=== PATIENT | male | born 1960 | race Caucasian/White ===

== ENCOUNTER → 2016-10-26 | Outpatient (CLI) | payer OTHER ==
[~2016-10-26] MED LIST: /CELE20CA PO; /ONDA4TA OR; ACET500C OR; ALLE25CA OR; ALLEGRA PO; ATIV1TAB2 OR; BENT20TA OR; CLAR10CA3 PO; FLON1SPR; FLUTISP; MEN MULTIVITAMIN PO; MULTTAB4 PO; MYLI40DR OR; NEUR300C PO; OMEP20CA3 PO; OMEP20TA7 OR; OMEP40CA2 PO; SIME180C PO; SIME80TA PO; TYL PO; ULTR50TA PO
--- NOTE | 2016-10-26 15:50 | REP ---
Clinical: Heel pain. Technique: Axial and lateral views of the left calcaneus. Findings: Lateral view demonstrates small calcaneal heal spur. Examination is otherwise normal. Impression: Small calcaneal heal spur.
== END ==
LOC: M CLY 15:01
PROVIDERS: ATTEND Family Medicine
DX: M77.32 Calcaneal spur, left foot (principal)

== ENCOUNTER 2016-12-25 11:39 | Inpatient (IN) | payer OTHER ==
[~2016-12-25] VITALS: Ht 165.1 cm; Wt 82.0 kg
[2016-12-25] MEDS: ENOXAPARIN 40 MG/0.4 ML SYRINGE (J1650) SC SCH ×2 (09:00→18:12)
[2016-12-25] MEDS ORDERED: NS 1,000 ML IV ONE (12:00)
[2016-12-25] MEDS ORDERED: KETOROLAC 30 MG/ML VIAL (J1885) IV ONE (12:00)
[2016-12-25] MEDS ORDERED: ONDANSETRON 4MG/2ML VIAL (J2405) IV ONE (12:00)
[2016-12-25 12:19] LABS: BASO % 0.4 % (0.0-1.0); EOS # 0.1 K/mm3 (0.0-0.50); LARGE UNSTAINED CELL # 0.1 K/mm3 (0.0-0.4); LARGE UNSTAINED CELL % 0.9 % (0.0-4.0); LYMPH # 1.4 K/mm3 (1.5-4.5); LYMPH % 13.7 % (24.0-44.0); MEAN CORPUSCULAR HEMOGLOBIN 30.6 pg (27.0-33.0); MONO # 0.3 K/mm3 (0.0-0.8); MONO % 3.5 % (0.0-5.0); NEUTROPHILS # 7.6 K/mm3 (1.8-7.7); NEUTROPHILS % 80.5 % (36.0-66.0); PLATELET COUNT, AUTOMATED 294 k/mm3 (150-450); RED CELL DISTRIBUTION WIDTH 13.1 % (11.5-14.5); WHITE BLOOD COUNT 9.5 K/mm3 (4.0-10.0)
[2016-12-25 12:33] LABS: ALBUMIN 4.3 GM/DL (3.2-5.2); ALKALINE PHOSPHATASE 65 U/L (45-117); ALT/SGPT 27 U/L (12-78); ANION GAP 9 MEQ/L (8-16); AST/SGOT 8 U/L (15-37); BILIRUBIN,DIRECT 0.1 MG/DL (0.0-0.2); BILIRUBIN,TOTAL 0.8 MG/DL (0.2-1.0); BLOOD UREA NITROGEN 18 MG/DL (7-18); CALCIUM LEVEL 9.1 MG/DL (8.5-10.1); CARBON DIOXIDE LEVEL 21 MEQ/L (21-32); CHLORIDE LEVEL 107 MEQ/L (98-107); CREATININE FOR GFR 1.17 MG/DL (0.70-1.30); GLOMERULAR FILTRATION RATE > 60.0 (>56); GLUCOSE, FASTING 156 MG/DL (70-105); SODIUM LEVEL 137 MEQ/L (136-145); TOTAL PROTEIN 8.6 GM/DL (6.4-8.2)
--- NOTE | 2016-12-25 12:35 | REP ---
Abdominal pain. COMPARISON: 02/13/2016 The accompanying frontal view of the chest is clear. There is no free subdiaphragmatic air. There are multiple dilated gas and fluid-filled small bowel loops in the abdomen. This is seen particularly on the upright view. The organ silhouettes insofar as delineated appear to be within normal limits. The osseous structures are within normal limits. IMPRESSION: SBO is suspected. Signed by Jabari Franks DO 12/25/2016 01:29 P
[2016-12-25] MEDS ORDERED: ISOVUE-370 76% 100ML VIAL (Q9967) As Ordered ONE (12:55)
[2016-12-25] MEDS ORDERED: VITMTA PO (15:03)
--- NOTE | 2016-12-25 15:25 | REP ---
REASON: Small bowel obstruction. COMPARISON: Multiple, the latest 02/12/2016 which showed a small bowel obstruction. Contrast utilized: 100 mL Isovue 370. The lung bases are clear and unchanged. The liver, gallbladder, spleen, pancreas, adrenal glands, and kidneys are within normal limits and essentially unchanged from the prior exam with the technical differences between the exams are taken into consideration. The abdominal aorta and para-aortic regions are within normal limits. There is no evidence of free fluid or free air in the abdomen. There are multiple gas and fluid-filled dilated small bowel loops in the abdomen. There is a paraumbilical hernia on the right through which a loop of small bowel protrudes and is extremely narrowed as it protrudes through this narrow aperture. This findings was present on the prior exam. CT PELVIS: The pelvis bowel loops are within normal limits. There is no free pelvic fluid or air. There is no pelvic mass or adenopathy. Bone window technique throughout the exam shows the osseous structures to be stable and intact and within normal limits for the patient's age. IMPRESSION: Findings consistent with an early or partial small bowel obstruction. Ventral hernia as described above. Other findings as described above. Signed by Jabari Franks DO 12/25/2016 04:17 P
[2016-12-25 16:20] VITALS: BP 116/72
[2016-12-25] MEDS: ONDANSETRON 4MG/2ML VIAL (J2405) IV PRN (18:03)
[2016-12-25] MEDS: PANTOPRAZOLE 40MG INJ (PROTONIX) (C9113) IV SCH (18:12)
[2016-12-25] MEDS: LR 1,000 ML IV SCH (18:14)
[2016-12-25] MEDS: METOCLOPRAMIDE INJ 10MG/2ML VIAL (J2765) IV PRN (20:10)
[2016-12-25] MEDS: MORPHINE 2 MG/ML 1ML SYRINGE IV PRN (20:25)
[2016-12-25 22:00] VITALS: BP 120/74
[2016-12-26] MEDS: ONDANSETRON 4MG/2ML VIAL (J2405) IV PRN ×4 (00:45→21:05)
[2016-12-26] MEDS: LR 1,000 ML IV SCH ×3 (00:45→17:40)
[2016-12-26] MEDS: KETOROLAC 30 MG/ML VIAL (J1885) IV PRN ×3 (00:45→19:46)
[2016-12-26 02:00] VITALS: BP 116/67
[2016-12-26] MEDS: MORPHINE 2 MG/ML 1ML SYRINGE IV PRN ×2 (03:31→21:05)
[2016-12-26] MEDS: METOCLOPRAMIDE INJ 10MG/2ML VIAL (J2765) IV PRN ×3 (03:37→19:45)
[2016-12-26 06:00] VITALS: BP 109/67
[2016-12-26 07:08] LABS: DIFF SLIDE NUMBER 95; MEAN CORPUSCULAR HEMOGLOBIN 29.9 pg (27.0-33.0); MEAN CORPUSCULAR HGB CONC 32.8 g/dl (32.0-36.5); MEAN CORPUSCULAR VOLUME 91.3 fl (80.0-96.0); PLATELET COUNT, AUTOMATED 226 k/mm3 (150-450); RED CELL DISTRIBUTION WIDTH 13.2 % (11.5-14.5)
[2016-12-26 07:09] LABS: WHITE BLOOD COUNT 2.7 K/mm3 (4.0-10.0)
[2016-12-26 07:16] LABS: ANION GAP 7 MEQ/L (8-16); BLOOD UREA NITROGEN 24 MG/DL (7-18); CALCIUM LEVEL 8.2 MG/DL (8.5-10.1); CARBON DIOXIDE LEVEL 25 MEQ/L (21-32); CHLORIDE LEVEL 110 MEQ/L (98-107); CREATININE FOR GFR 1.23 MG/DL (0.70-1.30); GLOMERULAR FILTRATION RATE > 60.0 (>56); GLUCOSE, FASTING 117 MG/DL (70-105); SODIUM LEVEL 142 MEQ/L (136-145)
[2016-12-26 08:28] LABS: BANDS 8 % (< 11); EOSINOPHILS 2 % (0-5)
[2016-12-26] MEDS: PANTOPRAZOLE 40MG INJ (PROTONIX) (C9113) IV SCH (09:15)
[2016-12-26] MEDS: ENOXAPARIN 40 MG/0.4 ML SYRINGE (J1650) SC SCH (09:16)
--- NOTE | 2016-12-26 09:53 | REP ---
KUB: Single view. History: Small bowel obstruction. Comparison is made with the radiograph from December 25, [address] study from December 25, 2016. Findings: Supine view of the abdomen shows persistent dilation moderate in degree of multiple small bowel loops in the central abdomen. There is mural thickening and mucosal fold thickening in the affected loops. The degree of distension may be slightly improved. There is increased gas in the transverse colon. Urinary bladder is opacified from CT contrast given. Impression: Persistent partial small bowel obstruction pattern with mural and mucosal fold thickening. Slightly improved. Signed by Jose Garay MD 12/26/2016 12:08 P
[2016-12-26 14:00] VITALS: BP 114/74
[2016-12-26 18:00] VITALS: BP 134/79
--- NOTE | 2016-12-26 20:38 | HPE ---
DATE OF ADMISSION: 12/25/2016 ADMISSION DIAGNOSES: 1. Small intestinal obstruction. 2. Ventral incisional hernia. HISTORY OF PRESENT ILLNESS: The patient is a pleasant 56-year-old man who presented to the emergency department with a complaint of what he believes is a recurrent small intestinal obstruction. The patient reports that he had an appendectomy in [place] back in about 1999, give or take a few years. This was done through a right lower quadrant paramedian incision. He sounds as if he may have been perforated at the time of the surgery. He did well for some time. In about 2003 he had an intestinal obstruction that was treated with nasogastric decompression and subsequently resolved. He had relocated to [place]. In 2011 he underwent an exploratory laparotomy by Dr. Interiano for a small bowel obstruction. The patient reports he had a prolonged ileus postoperatively and was hospitalized for over 2 weeks. He returned in 2012 with a ventral incisional hernia which was repaired primarily. This subsequently recurred but the patient reports it has not caused problems enough to have a repair. He was admitted in early 2014 with a small bowel obstruction and then again in about February 2016, and on these two occasions the patient reports that with nasogastric decompression his obstruction resolved. He reports that since last year he has had perhaps three episodes where he developed some abdominal distension with discomfort and he managed to wait it out at home with rest and ambulation with resolution of his symptoms. He reports that early on 12/24/2016, he noted some abdominal distension. He had some crampy abdominal discomfort. This increased during the course of the day on 12/24/2016. Overnight he noted a loose bowel movement. He awoke this morning and had several additional loose bowel movements but still had significant abdominal distension with crampy abdominal pains. He presented to the emergency department at 1139 for evaluation. He had an abdominal x-ray obtained that was consistent with a small bowel obstruction and then had a CT scan of the abdomen and pelvis which was also consistent with a small bowel obstruction. He had his ventral incisional hernia noted. This also shows a small hernia just to the right of his midline hernia which appears to contain portions of a loop of bowel. It is unclear to me if this represents the source of his obstruction. He does certainly have some distal decompressed small bowel. There is no sign of infection or acute inflammatory changes within the abdomen. He is now admitted for management of his recurrent small intestinal obstruction. ALLERGIES: The patient reports that CODEINE and DEMEROL both lead to nausea and vomiting with hives also associated with the DEMEROL. MEDICATIONS AT HOME: His only medication that he takes regularly is omeprazole 40 mg by mouth daily. He also takes [id number] Claritin 10 mg by mouth as needed daily. MEDICAL HISTORY: Negative other than his prior abdominal surgery and episodes of obstruction. He has had renal stones as well. SURGICAL HISTORY: Includes his appendectomy back in about 1999. He had his exploratory laparotomy for bowel obstruction at [facility] ([facility]) in 2011 and had a primary repair of his ventral incisional hernia in 2012. He has had lithotripsy for renal stones, perhaps three times in the past. He had also undergone surgery on his left thumb long ago for an injury. FAMILY HISTORY: Noncontributory. SOCIAL HISTORY: The patient is employed at [employer] and also does yard work in the summer. He denies any tobacco use and drinks alcohol occasionally. REVIEW OF SYSTEMS: Reveals no history of significant cardiac, respiratory, genitourinary or musculoskeletal skeletal problems. He has no history of deep venous thrombosis (DVT) or pulmonary embolus. He denies any history of chronic severe headaches, seizure or stroke. He has had a colonoscopy within the last couple years, which revealed diverticulosis and an adenomatous polyp was resected in the mid ascending colon. PHYSICAL EXAMINATION: The patient's most recent vital signs show a temperature of 98.4, with pulse of 96, blood pressure 110/75, respiratory rate of 18. The patient is alert, oriented and cooperative. He is lying quietly on the hospital stretcher, not in obvious discomfort. Sclerae are anicteric. Mucous membranes are moist. The neck is supple without mass and he has no cervical bruit. Heart exam shows regular rate and rhythm. The lungs are clear to auscultation bilaterally. The abdomen is mildly protuberant, particularly in the upper quadrants. He has a definite small hernia bulge perhaps 5-6 cm across in the area of the umbilicus. He has an old somewhat widened right lower quadrant paramedian scar and a longer midline scar. Auscultation reveals bowel sounds in all quadrants with some sounds suggestive of dilated bowel in the upper quadrants in particular. There is no definite tympany to percussion. There is no tenderness to percussion. The abdomen is generally soft but full. The hernia above the umbilicus or at the umbilicus reveals a definite fascial defect about 4 cm in diameter. This is soft and nontender. Extremities show no peripheral edema. He has palpable radial and dorsalis pedis pulses bilaterally. LABORATORY STUDIES: Include a white count of 9.5, with a hemoglobin of 16, hematocrit of 47, and platelet count of 294,000. Neutrophils are 80%, with 14% lymphocytes and 4% monocytes. Chemistry profile shows sodium of 137, potassium 4.0, chloride 107, CO2 of 21, BUN of 18, creatinine 1.17 and a glucose of 156. He has a lipase that is normal and his liver function tests are normal as well. A urinalysis shows no evidence for urinary tract infection. The abdominal x-ray was read as showing multiple dilated air and fluid-filled loops of small bowel. The CT scan confirms some dilated loops of small bowel. There is definite decompressed distal small bowel and colon. There is no significant free fluid and no area of significant inflammation. He does have the hernia of the anterior abdominal wall which appears to contain a portion of a crossing loop of small bowel and there is also a second smaller defect just inferior and to the right of this that also appears to contain a small portion of bowel. I am unable to definitely track the loops through this area to know if this might be the source of his obstruction. IMPRESSION: 1. Small bowel obstruction. 2. Ventral incisional hernia. PLAN: The patient is being admitted for management of his intestinal obstruction. Because he has some dilated loops of bowel containing fluid I think a nasogastric tube would be reasonable. The patient is agreeable with this and thinks that this has been a big part of his recovery with nonoperative management previously. He will receive IV maintenance fluid. He will be kept on a proton pump inhibitor intravenously. Thromboembolism deterrents (TEDs) and sequentials will be utilized and he will also be started on Lovenox for deep venous thrombosis (DVT) prophylaxis. He will be provided with analgesics as necessary. Hopefully his obstruction will resolve. I did not feel a definite hernia bulge as seen on the CT scan to the right and inferior to the main hernia defect. It may be that this is easily reducible or that it is too small to palpate appreciably. We will monitor this during the course of his hospital stay. SONA
[2016-12-26 22:00] VITALS: BP 120/69
[2016-12-27] MEDS: LR 1,000 ML IV SCH (02:18)
[2016-12-27] MEDS: METOCLOPRAMIDE INJ 10MG/2ML VIAL (J2765) IV PRN (02:21)
[2016-12-27] MEDS: ONDANSETRON 4MG/2ML VIAL (J2405) IV PRN ×2 (05:23→21:21)
[2016-12-27 06:00] VITALS: BP 116/70
[2016-12-27 06:54] LABS: BASO % 0.5 % (0.0-1.0); EOS # 0.1 K/mm3 (0.0-0.50); EOS % 3.3 % (0.0-3.0); LARGE UNSTAINED CELL # 0.1 K/mm3 (0.0-0.4); LARGE UNSTAINED CELL % 2.5 % (0.0-4.0); LYMPH # 1.4 K/mm3 (1.5-4.5); LYMPH % 38.1 % (24.0-44.0); MEAN CORPUSCULAR HEMOGLOBIN 29.8 pg (27.0-33.0); MEAN CORPUSCULAR HGB CONC 32.8 g/dl (32.0-36.5); MEAN CORPUSCULAR VOLUME 90.6 fl (80.0-96.0); MONO # 0.3 K/mm3 (0.0-0.8); MONO % 8.4 % (0.0-5.0); NEUTROPHILS # 1.8 K/mm3 (1.8-7.7); NEUTROPHILS % 47.3 % (36.0-66.0); PLATELET COUNT, AUTOMATED 206 k/mm3 (150-450); RED CELL DISTRIBUTION WIDTH 12.9 % (11.5-14.5); WHITE BLOOD COUNT 3.7 K/mm3 (4.0-10.0)
[2016-12-27 07:12] LABS: ANION GAP 5 MEQ/L (8-16); BLOOD UREA NITROGEN 24 MG/DL (7-18); CALCIUM LEVEL 8.5 MG/DL (8.5-10.1); CARBON DIOXIDE LEVEL 29 MEQ/L (21-32); CHLORIDE LEVEL 110 MEQ/L (98-107); CREATININE FOR GFR 1.16 MG/DL (0.70-1.30); GLOMERULAR FILTRATION RATE > 60.0 (>56); GLUCOSE, FASTING 87 MG/DL (70-105); POTASSIUM SERUM 3.7 MEQ/L (3.5-5.1); SODIUM LEVEL 144 MEQ/L (136-145)
[2016-12-27] MEDS: ENOXAPARIN 40 MG/0.4 ML SYRINGE (J1650) SC SCH (08:49)
[2016-12-27] MEDS: PANTOPRAZOLE 40MG INJ (PROTONIX) (C9113) IV SCH (08:49)
[2016-12-27 10:00] VITALS: BP 143/85
[2016-12-27] MEDS: POTASSIUM CHLORIDE INJ 40 MEQ in LR 1,000 ML IV SCH ×2 (11:00→21:21)
--- NOTE | 2016-12-27 13:30 | REP ---
KUB: Two views provided. HISTORY: Small bowel obstruction. Comparison study: December 26, 2016. FINDINGS: A nasogastric tube is seen in the body of the stomach. Moderately dilated central abdominal small bowel loops are again seen. There is still some mucosal folds and mural thickening however this is somewhat decreased. There is a little more gas in the colon and distal small bowel loops. IMPRESSION: Partial small bowel obstruction. Bowel gas pattern is somewhat improved. Signed by Jose Garay MD 12/27/2016 03:39 P
[2016-12-27 14:00] VITALS: BP 140/83
[2016-12-27 18:00] VITALS: BP 143/76
[2016-12-27] MEDS: KETOROLAC 30 MG/ML VIAL (J1885) IV PRN (21:23)
[2016-12-27 22:00] VITALS: BP 134/74
[2016-12-28 02:00] VITALS: BP 121/61
[2016-12-28 06:00] VITALS: BP 138/80
[2016-12-28] MEDS: ONDANSETRON 4MG/2ML VIAL (J2405) IV PRN ×3 (06:00→22:30)
[2016-12-28] MEDS: POTASSIUM CHLORIDE INJ 40 MEQ in LR 1,000 ML IV SCH ×2 (07:06→20:31)
[2016-12-28] MEDS: PANTOPRAZOLE 40MG INJ (PROTONIX) (C9113) IV SCH (07:37)
[2016-12-28] MEDS: ENOXAPARIN 40 MG/0.4 ML SYRINGE (J1650) SC SCH (07:38)
[2016-12-28 10:00] VITALS: BP 131/82
[2016-12-28 14:00] VITALS: BP 132/74
[2016-12-28] MEDS: KETOROLAC 30 MG/ML VIAL (J1885) IV PRN ×2 (15:38→22:31)
[2016-12-28 18:00] VITALS: BP 132/78
[2016-12-28 22:00] VITALS: BP 131/74
[2016-12-29 06:00] VITALS: BP 120/72
[2016-12-29 06:37] LABS: ANION GAP 9 MEQ/L (8-16); BLOOD UREA NITROGEN 16 MG/DL (7-18); CALCIUM LEVEL 8.2 MG/DL (8.5-10.1); CARBON DIOXIDE LEVEL 23 MEQ/L (21-32); CHLORIDE LEVEL 109 MEQ/L (98-107); CREATININE FOR GFR 0.97 MG/DL (0.70-1.30); GLOMERULAR FILTRATION RATE > 60.0 (>56); GLUCOSE, FASTING 77 MG/DL (70-105); POTASSIUM SERUM 4.2 MEQ/L (3.5-5.1); SODIUM LEVEL 141 MEQ/L (136-145)
[2016-12-29] MEDS: PANTOPRAZOLE 40MG INJ (PROTONIX) (C9113) IV SCH (08:13)
[2016-12-29] MEDS: ENOXAPARIN 40 MG/0.4 ML SYRINGE (J1650) SC SCH (08:13)
[2016-12-29] MEDS: ONDANSETRON 4MG/2ML VIAL (J2405) IV PRN (08:13)
[2016-12-29] MEDS: POTASSIUM CHLORIDE INJ 40 MEQ in LR 1,000 ML IV SCH (10:30)
[2016-12-29 14:00] VITALS: BP 140/82
[2016-12-29 22:00] VITALS: BP 116/75
[2016-12-30 02:00] VITALS: BP 110/80
[2016-12-30 06:00] VITALS: BP 142/92
[2016-12-30] MEDS: PANTOPRAZOLE 40MG INJ (PROTONIX) (C9113) IV SCH (09:00)
[2016-12-30 10:00] VITALS: BP 137/84
[2016-12-30 14:00] VITALS: BP 128/83
--- NOTE | 2017-02-01 09:52 | DSES ---
DATE OF ADMISSION: 12/25/2016 DATE OF DISCHARGE: 12/30/2016 ADMITTING DIAGNOSES: 1. Small intestinal obstruction. 2. Ventral incisional hernia. HISTORY OF THE PRESENT ILLNESS: The patient is a pleasant, 56-year-old man who presented to the emergency department with a complaint of a possible recurrent small intestinal obstruction. Patient reports that he had an appendectomy in [place] back in about 1999. This was done through a right lower quadrant paramedian incision. It sounds as if he was perforated at the time of surgery. In approximately 2003, he had an intestinal obstruction that was treated with nasogastric decompression and resolved. He relocated to [place]. In 2011, he underwent an exploratory laparotomy by Dr. Interiano for a small bowel obstruction. Patient reports he had a prolonged ileus postoperatively and was hospitalized for over 2 weeks. He returned in 2012 with a ventral incisional hernia, which was repaired primarily. This subsequently recurred, but the patient reports it has not caused problems enough to have a repair. He was admitted in early 2014 with a small bowel obstruction and then again in approximately February of 2016 and on each of these occasions the obstruction resolved with nasogastric decompression. He reports he has had a couple of episodes of some abdominal distension with discomfort that he managed to wait out at home with rest and ambulation and a liquid diet. On 12/24/2016, he noted some increased abdominal distension. He developed some crampy abdominal discomfort. This increased during the day on 12/24/2016 and overnight he noted a loose bowel movement. He awoke on 12/25/2016 and had several additional loose bowel movements, but still had significant abdominal distension with crampy abdominal pains. He presented to the emergency department at 11:39 for evaluation. An x-ray showed what was felt to be consistent with a small bowel obstruction and a CT scan of the abdomen and pelvis was also done which was felt to be consistent with a small bowel obstruction. His ventral incisional hernia was noted. He was also noted to have a small hernia just to the right of his midline hernia, which appeared to contain portions of a loop of bowel. It was not clear whether this might represent the source of his obstruction. He had some distal decompressed small bowel noted. I was consulted, and the patient was admitted to manage his recurrent small intestinal obstruction. A nasogastric tube was placed. He received intravenous (IV) fluids. The patient was admitted to a medical-surgical floor. He spontaneously walked multiple laps around the nursing floor in an attempt to stimulate bowel function. By 12/26/2016, he remained somewhat distended but was perhaps less uncomfortable. His nasogastric (NG) tube had put out 700 mL. A KUB showed decreased amounts of small bowel air with increased colonic air. His NG tube and IV were continued. He felt further improved on 12/27/2016, but still had 500 mL out in his NG tube. On 12/26/2016, he reported that he was improving with increased flatus. He requested a trial of clamping his NG tube and this was granted. His urine output was noted to be much improved. On 12/29/2016, he reported increased flatus and no pain. His NG tube has remained clamped since the previous day. His NG was discontinued. He was started on clear liquids. He did well with the clear liquids overnight and was discharged on 12/30/2016. FINAL DIAGNOSES: 1. Recurrent small bowel obstruction secondary to adhesions. 2. Ventral incisional hernia. DISPOSITION: The patient was discharged home on 12/30/2016. He was not provided any new medications. He was to take a diet as tolerated. He was to continue his loratadine, multivitamin and omeprazole as before admission. He was to followup in my office on an as-needed basis.
== END 2016-12-30 17:27 | disposition home or self-care (01) | DRG 247 ==
LOC: M ED 12:28 → M ED INP 14:43 → M MSPAV 16:06
PROVIDERS: ADMIT Surgery; ATTEND Surgery
DX: K56.5 Intestinal adhesions [bands] with obstruction (postinfection) (principal); K43.2 Incisional hernia without obstruction or gangrene; Z88.5 Allergy status to narcotic agent; Z79.899 Other long term (current) drug therapy

== ENCOUNTER → 2017-01-11 | Outpatient (REF) | payer MEDICAID, OTHER, SELFPAY ==
[~2017-01-11] MED LIST changes: +VITMTA PO
[2017-01-11 12:08] LABS: ALBUMIN 3.8 GM/DL (3.2-5.2); ALBUMIN/GLOBULIN RATIO 1.12 (1.00-1.93); ALKALINE PHOSPHATASE 73 U/L (45-117); ALT/SGPT 25 U/L (12-78); ANION GAP 5 MEQ/L (8-16); AST/SGOT 10 U/L (15-37); BILIRUBIN,TOTAL 0.6 MG/DL (0.2-1.0); BLOOD UREA NITROGEN 15 MG/DL (7-18); CALCIUM LEVEL 8.4 MG/DL (8.5-10.1); CARBON DIOXIDE LEVEL 29 MEQ/L (21-32); CHLORIDE LEVEL 106 MEQ/L (98-107); CHOLESTEROL LEVEL 209 MG/DL (<200); GLOMERULAR FILTRATION RATE > 60.0 (>56); GLUCOSE, FASTING 122 MG/DL (70-105); POTASSIUM SERUM 4.4 MEQ/L (3.5-5.1); SODIUM LEVEL 140 MEQ/L (136-145); TOTAL PROTEIN 7.2 GM/DL (6.4-8.2); TRIGLYCERIDES LEVEL 167 MG/DL (<150)
== END ==
LOC: M SFHCCLAY 07:03
PROVIDERS: ATTEND Family Medicine
DX: Z12.5 Encounter for screening for malignant neoplasm of prostate (principal); E78.2 Mixed hyperlipidemia; R73.9 Hyperglycemia, unspecified
CPT/HCPCS: 80053; 80061; 83036; G0103

== ENCOUNTER → 2017-08-09 | Outpatient (REF) | payer MEDICAID ==
[2017-08-09 12:15] LABS: ALBUMIN 3.8 GM/DL (3.2-5.2); ALBUMIN/GLOBULIN RATIO 0.97 (1.00-1.93); ALKALINE PHOSPHATASE 55 U/L (45-117); ALT/SGPT 27 U/L (12-78); ANION GAP 9 MEQ/L (8-16); AST/SGOT 12 U/L (7-37); BILIRUBIN,TOTAL 0.5 MG/DL (0.2-1.0); BLOOD UREA NITROGEN 15 MG/DL (7-18); CALCIUM LEVEL 8.7 MG/DL (8.5-10.1); CARBON DIOXIDE LEVEL 27 MEQ/L (21-32); CHLORIDE LEVEL 106 MEQ/L (98-107); CHOLESTEROL LEVEL 267 MG/DL (<200); GLOMERULAR FILTRATION RATE > 60.0 (>56); GLUCOSE, FASTING 122 MG/DL (70-105); POTASSIUM SERUM 4.4 MEQ/L (3.5-5.1); SODIUM LEVEL 142 MEQ/L (136-145); TOTAL PROTEIN 7.7 GM/DL (6.4-8.2); TRIGLYCERIDES LEVEL 173 MG/DL (<150)
== END ==
LOC: M SFHCCLAY 08:12
PROVIDERS: ATTEND Family Medicine
DX: E78.2 Mixed hyperlipidemia (principal); R73.9 Hyperglycemia, unspecified

== ENCOUNTER → 2017-10-26 | Outpatient (CLI) | payer OTHER, MEDICAID | LOC: M CLY 09:21 | DX: J40 Bronchitis, not specified as acute or chronic (principal) | CPT/HCPCS: 71046 ==

== ENCOUNTER 2018-04-25 09:47 | Emergency (ER) | payer SELFPAY, OTHER ==
[2018-04-25] MEDS ORDERED: CLOPIDOGREL 300 MG TAB (PLAVIX) (09:48)
[2018-04-25] MEDS ORDERED: EPINEPHrine 1MG/10ML SYRINGE 1.5IN (09:48)
[2018-04-25] MEDS ORDERED: HEPARIN 25,000 UNITS/250 ML D5W BAG (100 UNITS/ML) (09:48)
[2018-04-25] MEDS ORDERED: HEPARIN SOD (PORCINE) 5000 UNITS/ML VIAL (09:48)
[2018-04-25 10:10] LABS: ABG BASE EXCESS -14.8 (-2.0-2.0); ABG HCO3 11.8 MEQ/L (22.0-26.0); ABG PARTIAL PRESSURE CO2 30.3 mmHg (35.0-45.0); ABG PARTIAL PRESSURE O2 123.2 mmHg (75.0-100.0); ABG STANDARD HCO3 13.4 MEQ/L (22.0-26.0); ABG TOTAL CO2 12.7 MEQ/L (22.0-29.0)
[2018-04-25 10:13] LABS: ABG pH (ARTERIAL) 7.207 UNITS (7.350-7.450)
[2018-04-25 10:19] LABS: HEMATOCRIT 44.7 % (42.0-52.0); HEMOGLOBIN 14.9 g/dl (13.5-17.5); MEAN CORPUSCULAR HEMOGLOBIN 31.5 pg (27.0-33.0); MEAN CORPUSCULAR HGB CONC 33.3 g/dl (32.0-36.5); MEAN CORPUSCULAR VOLUME 94.5 fl (80.0-96.0); PLATELET COUNT, AUTOMATED 247 10^3/uL (150-450); RED BLOOD COUNT 4.73 10^6/uL (4.30-6.10); RED CELL DISTRIBUTION WIDTH 12.5 % (11.5-14.5)
[2018-04-25] MEDS ORDERED: NITROGLYCERIN 0.4 MG SUBL TABLET As Ordered (10:19)
[2018-04-25 10:21] LABS: WHITE BLOOD COUNT 10.9 10^3/uL (4.0-10.0)
[2018-04-25 10:22] LABS: ADD MANUAL DIFFER YES; DIFF SLIDE NUMBER 206; INR 1.07; POSITIVE DIFF POS FLAG; POSITIVE MORPH POS FLAG
[2018-04-25 10:23] LABS: PARTIAL THROMBOPLASTIN TIME 20.8 SECONDS (25.4-37.6)
[2018-04-25] MEDS: NITROGLYCERIN 0.4 MG SUBL TABLET SL (10:24)
[2018-04-25] MEDS ORDERED: NITROGLYCERIN 2% OINT 1 GM *U/D* PKT As Ordered (10:26)
[2018-04-25] MEDS: NITROGLYCERIN 2% OINT 1 GM *U/D* PKT TOP (10:29)
[2018-04-25] MEDS ORDERED: CLOPIDOGREL 300 MG TAB (PLAVIX) As Ordered (10:36)
[2018-04-25 10:41] LABS: ALBUMIN 3.7 GM/DL (3.2-5.2); ALBUMIN/GLOBULIN RATIO 0.93 (1.00-1.93); ALKALINE PHOSPHATASE 53 U/L (45-117); ALT/SGPT 139 U/L (12-78); ANION GAP 19 MEQ/L (8-16); AST/SGOT 110 U/L (7-37); BILIRUBIN,DIRECT 0.1 MG/DL (0.0-0.2); BILIRUBIN,TOTAL 0.6 MG/DL (0.2-1.0); BLOOD UREA NITROGEN 19 MG/DL (7-18); CALCIUM LEVEL 8.2 MG/DL (8.5-10.1); CARBON DIOXIDE LEVEL 14 MEQ/L (21-32); CHLORIDE LEVEL 108 MEQ/L (98-107); CPK CREATINE PHOSPHOKINASE 144 U/L (39-308); CREATININE FOR GFR 1.44 MG/DL (0.70-1.30); GLOMERULAR FILTRATION RATE 54.2 (>56); GLUCOSE, FASTING 189 MG/DL (70-100); LIPASE 338 U/L (73-393); MAGNESIUM LEVEL 2.1 MG/DL (1.8-2.4); POTASSIUM SERUM 2.5 MEQ/L (3.5-5.1); SODIUM LEVEL 141 MEQ/L (136-145); TOTAL PROTEIN 7.7 GM/DL (6.4-8.2); TROPONIN I < 0.02 NG/ML (< 0.10)
[2018-04-25] MEDS: NITROGLYCERIN/D5W 100MCG/ML 25 MG in APPROPRIATE DILUENT 1 EA IV (10:41)
[2018-04-25] MEDS: HEPARIN SOD (PORCINE) 5000 UNITS/ML VIAL IV (10:42)
[2018-04-25] MEDS: HEPARIN DRIP 25,000 UNITS in APPROPRIATE DILUENT 1 EA IV (10:42)
[2018-04-25] MEDS: CLOPIDOGREL 300 MG TAB (PLAVIX) PO (10:43)
[2018-04-25 10:47] LABS: CK-MB VALUE MASS 1.6 NG/ML (<3.6); MB/CK RELATIVE INDEX 1.11 (< OR =4); NT-PRO BNP 23 PG/ML (<125)
[2018-04-25 10:50] LABS: ATYPICAL LYMPH 53 % (0-5); BASOPHILS 1 % (0-4); EOSINOPHILS 1 % (0-5); LYMPHOCYTES 14 % (16-52); MONOCYTES 7 % (0-8); NEUTROPHILS 24 % (35-75); PLATELET ESTIMATE NORMAL (NORMAL)
== END 2018-04-25 11:07 | disposition short-term general hospital (02) ==
LOC: M ED 09:47
DX: I46.9 Cardiac arrest, cause unspecified (principal); I44.0 Atrioventricular block, first degree; I45.19 Other right bundle-branch block; Z87.19 Personal history of other diseases of the digestive system; Z82.49 Family history of ischemic heart disease and other diseases of the circulatory system; Z79.82 Long term (current) use of aspirin; Z79.899 Other long term (current) drug therapy; Z88.5 Allergy status to narcotic agent; Z88.8 Allergy status to other drugs, medicaments and biological substances
CPT/HCPCS: 71045

== ENCOUNTER 2018-04-30 16:50 | Inpatient (IN) | payer SELFPAY, OTHER ==
[2018-04-30] MEDS: ONDANSETRON 4MG/2ML VIAL (J2405) IV (18:13)
[2018-04-30] MEDS: NS 1,000 ML IV ×2 (18:13→20:29)
[2018-04-30] MEDS: MORPHINE 4 MG/ML 1ML VIAL/SYRINGE (J2270) IV ×2 (18:14→21:36)
[2018-04-30] MEDS: GASTROGRAFIN SOLUTION 30ML PO ×2 (18:29→18:56)
[2018-04-30 18:32] LABS: INR 0.96; PROTHROMBIN TIME 12.9 SECONDS (12.1-14.4)
[2018-04-30 18:44] LABS: ALBUMIN 4.5 GM/DL (3.2-5.2); ALBUMIN/GLOBULIN RATIO 0.92 (1.00-1.93); ALKALINE PHOSPHATASE 115 U/L (45-117); ALT/SGPT 114 U/L (12-78); ANION GAP 13 MEQ/L (8-16); AST/SGOT 84 U/L (7-37); BILIRUBIN,DIRECT 0.2 MG/DL (0.0-0.2); BILIRUBIN,TOTAL 0.8 MG/DL (0.2-1.0); BLOOD UREA NITROGEN 35 MG/DL (7-18); CALCIUM LEVEL 10.1 MG/DL (8.5-10.1); CARBON DIOXIDE LEVEL 19 MEQ/L (21-32); CHLORIDE LEVEL 106 MEQ/L (98-107); CREATININE FOR GFR 1.48 MG/DL (0.70-1.30); GLOMERULAR FILTRATION RATE 52.5 (>56); GLUCOSE, FASTING 129 MG/DL (70-100); LIPASE 222 U/L (73-393); POTASSIUM SERUM 4.4 MEQ/L (3.5-5.1); SODIUM LEVEL 138 MEQ/L (136-145); TOTAL PROTEIN 9.4 GM/DL (6.4-8.2)
[2018-04-30 18:46] LABS: CK-MB VALUE MASS 1.5 NG/ML (<3.6); TROPONIN I 2.18 NG/ML (< 0.10)
[2018-04-30 18:54] LABS: CPK CREATINE PHOSPHOKINASE 2209 U/L (39-308); MB/CK RELATIVE INDEX 0.06 (< OR =4)
[2018-04-30] MEDS ORDERED: ISOVUE-370 76% 100ML VIAL (Q9967) As Ordered (19:43)
[2018-04-30] MEDS: METOCLOPRAMIDE INJ 10MG/2ML VIAL (J2765) IV (20:29)
[2018-04-30 20:35] LABS: BASO % 0.4 % (0.0-1.0); EOS % 0.3 % (0.0-3.0); HEMATOCRIT 44.8 % (42.0-52.0); HEMOGLOBIN 15.6 g/dl (13.5-17.5); IMMATURE GRANULOCYTE % 0.4 % (0-3.0); LYMPH # 1.4 10^3/uL (1.5-4.5); LYMPH % 15.1 % (24.0-44.0); MEAN CORPUSCULAR HEMOGLOBIN 30.6 pg (27.0-33.0); MEAN CORPUSCULAR HGB CONC 34.8 g/dl (32.0-36.5); MEAN CORPUSCULAR VOLUME 87.8 fl (80.0-96.0); MONO # 0.5 10^3/uL (0.0-0.8); NEUTROPHILS # 7.3 10^3/uL (1.8-7.7); NEUTROPHILS % 78.8 % (36.0-66.0); PLATELET COUNT, AUTOMATED 292 10^3/uL (150-450); RED CELL DISTRIBUTION WIDTH 12.3 % (11.5-14.5); WHITE BLOOD COUNT 9.3 10^3/uL (4.0-10.0)
[2018-04-30] MEDS ORDERED: LIDOCAINE 2% 5ML JELLY UROJET As Ordered (20:56)
[2018-04-30] MEDS: LIDOCAINE 2% 5ML JELLY UROJET TOP (21:21)
[2018-04-30] MEDS: LR 1,000 ML IV (21:59)
[2018-05-01] MEDS: ONDANSETRON 4MG/2ML VIAL (J2405) IV ×3 (00:14→12:40)
[2018-05-01] MEDS: METOCLOPRAMIDE INJ 10MG/2ML VIAL (J2765) IV ×2 (02:56→09:38)
[2018-05-01] MEDS: MORPHINE 4 MG/ML 1ML VIAL/SYRINGE (J2270) IV ×2 (03:26→06:25)
[2018-05-01 06:41] LABS: ANION GAP 8 MEQ/L (8-16); BLOOD UREA NITROGEN 31 MG/DL (7-18); CALCIUM LEVEL 8.2 MG/DL (8.5-10.1); CARBON DIOXIDE LEVEL 23 MEQ/L (21-32); CHLORIDE LEVEL 111 MEQ/L (98-107); CK-MB VALUE MASS 1.1 NG/ML (<3.6); CPK CREATINE PHOSPHOKINASE 952 U/L (39-308); CREATININE FOR GFR 1.17 MG/DL (0.70-1.30); GLOMERULAR FILTRATION RATE > 60.0 (>56); GLUCOSE, FASTING 116 MG/DL (70-100); MB/CK RELATIVE INDEX 0.11 (< OR =4); POTASSIUM SERUM 4.2 MEQ/L (3.5-5.1); SODIUM LEVEL 142 MEQ/L (136-145)
[2018-05-01 06:44] LABS: TROPONIN I 1.75 NG/ML (< 0.10)
[2018-05-01] MEDS: ASPIRIN 81 MG ENTERIC TAB PO (08:39)
[2018-05-01] MEDS: CLOPIDOGREL 75 MG TAB PO (08:39)
[2018-05-01] MEDS: PANTOPRAZOLE 40MG INJ (PROTONIX) (C9113) IV (08:39)
[2018-05-01] MEDS: LR 1,000 ML IV (12:41)
[2018-05-01] MEDS: METOPROLOL SUCC *XL* 25MG TAB (TopROL *XL*) PO (20:45)
[2018-05-02] MEDS: LR 1,000 ML IV (00:31)
[2018-05-02 06:59] LABS: MAGNESIUM LEVEL 2.2 MG/DL (1.8-2.4)
[2018-05-02] MEDS: PANTOPRAZOLE 40MG INJ (PROTONIX) (C9113) IV (09:22)
[2018-05-02] MEDS: ASPIRIN 81 MG ENTERIC TAB PO (09:23)
[2018-05-02] MEDS: CLOPIDOGREL 75 MG TAB PO (09:23)
[2018-05-02 11:00] LABS: ALBUMIN 3.1 GM/DL (3.2-5.2); ANION GAP 7 MEQ/L (8-16); BLOOD UREA NITROGEN 22 MG/DL (7-18); CALCIUM LEVEL 7.9 MG/DL (8.5-10.1); CARBON DIOXIDE LEVEL 24 MEQ/L (21-32); CHLORIDE LEVEL 110 MEQ/L (98-107); CREATININE FOR GFR 1.03 MG/DL (0.70-1.30); GLOMERULAR FILTRATION RATE > 60.0 (>56); GLUCOSE, FASTING 95 MG/DL (70-100); PHOSPHORUS LEVEL 2.4 MG/DL (2.5-4.9); POTASSIUM SERUM 3.8 MEQ/L (3.5-5.1); SODIUM LEVEL 141 MEQ/L (136-145)
[2018-05-03 06:50] LABS: ALBUMIN 3.1 GM/DL (3.2-5.2); ALBUMIN/GLOBULIN RATIO 0.91 (1.00-1.93); ALKALINE PHOSPHATASE 66 U/L (45-117); ALT/SGPT 51 U/L (12-78); ANION GAP 8 MEQ/L (8-16); AST/SGOT 24 U/L (7-37); BILIRUBIN,TOTAL 0.4 MG/DL (0.2-1.0); BLOOD UREA NITROGEN 20 MG/DL (7-18); CALCIUM LEVEL 7.9 MG/DL (8.5-10.1); CARBON DIOXIDE LEVEL 24 MEQ/L (21-32); CHLORIDE LEVEL 110 MEQ/L (98-107); CHOLESTEROL LEVEL 111 MG/DL (<200); CREATININE FOR GFR 0.89 MG/DL (0.70-1.30); GLOMERULAR FILTRATION RATE > 60.0 (>56); GLUCOSE, FASTING 110 MG/DL (70-100); HDL CHOLESTEROL 50 MG/DL (>40); LDL CHOLESTEROL 40.6 MG/DL (<100); NON-HDL-C 61 MG/DL; POTASSIUM SERUM 4.1 MEQ/L (3.5-5.1); SODIUM LEVEL 142 MEQ/L (136-145); TRIGLYCERIDES LEVEL 102 MG/DL (<150)
[2018-05-03 07:05] LABS: TOTAL PROTEIN 6.5 GM/DL (6.4-8.2)
[2018-05-03] MEDS: ASPIRIN 81 MG ENTERIC TAB PO (08:18)
[2018-05-03] MEDS: PANTOPRAZOLE 40MG INJ (PROTONIX) (C9113) IV (08:18)
[2018-05-03] MEDS: CLOPIDOGREL 75 MG TAB PO (08:18)
[2018-05-04] MEDS: CLOPIDOGREL 75 MG TAB PO (07:52)
[2018-05-04] MEDS: PANTOPRAZOLE 40MG INJ (PROTONIX) (C9113) IV (07:52)
[2018-05-04] MEDS: ASPIRIN 81 MG ENTERIC TAB PO (07:52)
[2018-05-04] MEDS: RAMIPRIL 1.25 MG CAP PO (09:51)
== END 2018-05-04 12:37 | disposition home or self-care (01) | DRG 247 ==
LOC: M ED 16:50 → M ED INP 21:43 → M MSPAV 22:30
DX: K56.51 Intestinal adhesions [bands], with partial obstruction (principal); I21.4 Non-ST elevation (NSTEMI) myocardial infarction; Z86.74 Personal history of sudden cardiac arrest; E11.9 Type 2 diabetes mellitus without complications; G47.33 Obstructive sleep apnea (adult) (pediatric); K21.9 Gastro-esophageal reflux disease without esophagitis; E78.5 Hyperlipidemia, unspecified; R00.1 Bradycardia, unspecified; K43.2 Incisional hernia without obstruction or gangrene; Z79.02 Long term (current) use of antithrombotics/antiplatelets; Z79.82 Long term (current) use of aspirin; Z79.84 Long term (current) use of oral hypoglycemic drugs; Z88.5 Allergy status to narcotic agent; Z88.8 Allergy status to other drugs, medicaments and biological substances; Z87.442 Personal history of urinary calculi; Z95.5 Presence of coronary angioplasty implant and graft; Z79.899 Other long term (current) drug therapy

== ENCOUNTER → 2018-05-29 | Outpatient (REF) | payer MEDICAID ==
[2018-06-04 08:41] LABS: PROMETHEUS IBD ANTIBODIES SEE SEPARATE REPORT
[2018-06-04 08:42] LABS: PROMETHEUS IBD SNP SEE SEPARATE REPORT
== END ==
LOC: M LABDRAWC 16:42
DX: R93.5 Abnormal findings on diagnostic imaging of other abdominal regions, including retroperitoneum (principal)
CPT/HCPCS: 36415

== ENCOUNTER 2018-07-09 08:01 | Outpatient (RCR) | payer OTHER | END 2018-07-11 | LOC: M CR 08:01 | DX: Z98.61 Coronary angioplasty status (principal) | CPT/HCPCS: 93798 ==

== ENCOUNTER 2018-07-16 11:33 | Outpatient (RCR) | payer OTHER | END 2018-08-10 | LOC: M CR 11:33 | DX: Z98.61 Coronary angioplasty status (principal) | CPT/HCPCS: 93798 ==

== ENCOUNTER → 2018-07-27 | Outpatient (REF) | payer OTHER ==
[2018-07-27 12:16] LABS: ALBUMIN 3.8 GM/DL (3.2-5.2); ALBUMIN/GLOBULIN RATIO 1.19 (1.00-1.93); ALKALINE PHOSPHATASE 65 U/L (45-117); ALT/SGPT 32 U/L (12-78); AST/SGOT 13 U/L (7-37); BILIRUBIN,DIRECT 0.2 MG/DL (0.0-0.2); BILIRUBIN,TOTAL 0.9 MG/DL (0.2-1.0); CHOLESTEROL LEVEL 124 MG/DL (<200); CHOLESTEROL RISK RATIO 2.431 (<5); HDL CHOLESTEROL 51 MG/DL (>40); LDL CHOLESTEROL 57 MG/DL (<100); NON-HDL-C 73 MG/DL; TRIGLYCERIDES LEVEL 78 MG/DL (<150)
== END ==
LOC: M LABDRAWC 11:30
DX: E78.2 Mixed hyperlipidemia (principal)

== ENCOUNTER → 2018-07-27 | Outpatient (REF) | payer OTHER ==
[2018-07-27 12:14] LABS: ALBUMIN/GLOBULIN RATIO 1.25 (1.00-1.93); ALKALINE PHOSPHATASE 64 U/L (45-117); ALT/SGPT 33 U/L (12-78); ANION GAP 8 MEQ/L (8-16); AST/SGOT 14 U/L (7-37); BILIRUBIN,TOTAL 0.8 MG/DL (0.2-1.0); BLOOD UREA NITROGEN 15 MG/DL (7-18); CALCIUM LEVEL 8.9 MG/DL (8.5-10.1); CARBON DIOXIDE LEVEL 26 MEQ/L (21-32); CHLORIDE LEVEL 108 MEQ/L (98-107); CHOLESTEROL LEVEL 134 MG/DL (<200); CHOLESTEROL RISK RATIO 2.436 (<5); CREATININE FOR GFR 1.01 MG/DL (0.70-1.30); GLOMERULAR FILTRATION RATE > 60.0 (>56); GLUCOSE, FASTING 129 MG/DL (70-100); HDL CHOLESTEROL 55 MG/DL (>40); LDL CHOLESTEROL 63 MG/DL (<100); NON-HDL-C 79 MG/DL; POTASSIUM SERUM 4.1 MEQ/L (3.5-5.1); SODIUM LEVEL 142 MEQ/L (136-145); TOTAL PROTEIN 7.2 GM/DL (6.4-8.2); TRIGLYCERIDES LEVEL 80 MG/DL (<150)
[2018-07-27 12:25] LABS: ESTIMATED AVERAGE GLUCOSE 140 MG/DL (60-110); HEMOGLOBIN A1c 6.5 %
== END ==
LOC: M SFHCCLAY 07:16
DX: E78.2 Mixed hyperlipidemia (principal); R73.9 Hyperglycemia, unspecified; E11.9 Type 2 diabetes mellitus without complications; I25.10 Atherosclerotic heart disease of native coronary artery without angina pectoris

== ENCOUNTER 2018-09-06 14:56 | Outpatient (RCR) | payer OTHER ==
--- NOTE | 2018-08-29 14:00 | CARECAPL ---
Assessment Account #s: Re-Assessment II General Diagnoses: Stent Date of event: Apr 25, 2018 Physician: Kip Prasad MD Allergies: Coded Allergies: Meperidine (Verified Allergy, Intermediate, N/V AND HIVES, 04/30/18) Ramipril (Verified Allergy, Unknown, swelling, 05/12/18) Codeine (Verified Adverse Reaction, Mild, N/V, 04/30/18) Date Entered Program: Jul 09, 2018 Risk strat for cardiac event: High Exercise Date: Aug 29, 2018 Assessment: Re-Assessment II Exercise Prescription Modalities initiated: Treadmill, Nustep, Arm Aerometer, Dumbells, Recumbent Bike Frequency: 2-3 Duration (Minutes) 30-60 minutes total exercise a day. 8-15 work intervals in minutes. rest intervals in minutes. Functional Capacity Goal Sustained Metabolic Equivalent of a task (MET) goal of for minutes. Intensity: 2-Slight Progression (METS) Increase by: METS every: sessions Angina with ex: No Resistance Training: Yes Weight (pounds): 5 Reps: 8-12 Medications Scheduled Aspirin (Aspirin EC), 81 MG PO DAILY, (Reported) Atorvastatin Calcium (Lipitor), 80 MG PO DAILY, (Reported) Clopidogrel Bisulfate (Plavix), 75 MG PO DAILY, (Reported) Omeprazole (Omeprazole), 40 MG PO DAILY, (Reported) Scheduled PRN Loratadine (Loratadine), 10 MG PO DAILY PRN for ALLERGIES, (Reported) Current BP 130/84 Med Change: No Target Goals Individual exercise Rx (1) BP 140/90 or 130/80 if DM or CKD (1) Aerobic active 30+min 5 days per week (1) Nutrition Date: Aug 29, 2018 Assessment: Re-Assessment II Med Change: No Current Weight (pounds): 174 Intervention Successfactors Consultant Consult: Yes Nurse/patient discussion: Yes Education Relate Diabetes in CAD, Eating Healthy Education Goals Met: Yes Target goal LDL-C<100 if triglycerides are >200 Non-HDL-C should be <130 (1) LDL-C<70 for high risk patients (4) HbA1c<7% (1) BMI<25 Waist cir<40in M/<35in F (1) Education Date: Aug 29, 2018 Assessment: Re-Assessment II Family Support: Yes Tobacco use: No Intervention Education class schedule given: Yes Attended education classes: Yes Education: CAD, Risk factors, med compliance, cardiac A&P, Angina S/S, Sexuality Education Goals Met: Yes Target Goals Complete cessation of tobacco use (1). Psychosocial Date: Aug 29, 2018 Assessment: Re-Assessment II Stress Management Class: Yes Uses Stress Management Skills: Yes Education Education: Coping Techniques, S/S depression, Relaxation Techniques Education Goals Met: Yes Target Goal Assess presence or absence of depression using a valid screening tool (1). Maximize coping skills (2). Positive support system (2). Provider Assessment Session Number: 14 Provider Assessment: No changes Jasmina Schilling RN Aug 29, 2018 14:00
[~2018-09-06 14:56] MED LIST changes: +ALTA1CAP PO; +ASPI1TAB PO; +ASPI81TAEC PO; +ATOR80TA59 PO; +LIPI80TA PO; +LORA10TA3 PO; +METF500T13 PO; +METO1TAB32 PO; +PLAV1TAB2 PO; +TOPR25TA13 PO
== END 2018-09-10 ==
LOC: M CR 14:56
PROVIDERS: ATTEND Internal Medicine Interventional Cardiology
DX: Z98.61 Coronary angioplasty status (principal)

== ENCOUNTER 2018-09-27 09:04 | Outpatient (RCR) | payer OTHER ==
--- NOTE | 2018-09-27 11:11 | CARECAPL ---
General Diagnoses: NSTEMI, PTCA Allergies: Coded Allergies: Meperidine (Verified Allergy, Intermediate, N/V AND HIVES, 04/30/18) Ramipril (Verified Allergy, Unknown, swelling, 05/12/18) Codeine (Verified Adverse Reaction, Mild, N/V, 04/30/18) Date Entered Program: Apr 25, 2018 Risk strat for cardiac event: High Exercise Date: Sep 27, 2018 Assessment: Followup/Discharge Exercise Prescription Plan TO EDUCATE AND BUILD ENDURANCE THROUGH MONITORED EXERCISE Modalities initiated: Treadmill (METS=4.54/RPE=3), Nustep (METS=6.3/RPE=3), Arm Aerometer (METS=4.63/RPE=2), Dumbells (7#/RPE=2), Recumbent Bike (METS=6.1/RPE=3), Elliptimill (METS=4.26/RPE=3) Frequency: 3 Duration (Minutes) 30-60 minutes total exercise a day. 10-15 work intervals in minutes. 5 MINUTES PRN rest intervals in minutes. Functional Capacity Goal Sustained Metabolic Equivalent of a task (MET) goal of 4.75-5.75 for 15 - 20 minutes. Intensity: 3-Moderate Progression (METS) Increase by: METS every: sessions Angina with ex: No Target Heart Rate 99-132 BASED ON AGE PREDICTED Resistance Training: Yes Weight (pounds): 7 Reps: 12-15 Hypertension: Yes Hypertension controlled with: Medication Resting 102/70 Peak Exercise BP 166/96 Medications Scheduled Aspirin (Aspirin EC), 81 MG PO DAILY, (Reported) Atorvastatin Calcium (Lipitor), 80 MG PO DAILY, (Reported) Clopidogrel Bisulfate (Plavix), 75 MG PO DAILY, (Reported) Omeprazole (Omeprazole), 40 MG PO DAILY, (Reported) Scheduled PRN Loratadine (Loratadine), 10 MG PO DAILY PRN for ALLERGIES, (Reported) Current BP 110/70 Intervention Education: Self pulse, Ex safety, S/S to report, Low NA diet, BP medication, RPE Scale, Equipment orientation, warm up/cool down, Understand BP, Physical Active Education Goals Met: Yes Target Goals Individual exercise Rx (1) BP 140/90 or 130/80 if DM or CKD (1) Aerobic active 30+min 5 days per week (1) Nutrition Date: Sep 27, 2018 Assessment: Followup/Discharge Lipid- med/supplement LIPITOR Med Change: No Diabetes Diabetes: No Monitor Blood Sugar at home: No Medication Change: No Blood sugar in range: No Weight Management Weight (lbs): 172.4 Special Diet: low salt, low-fat Alcohol: special Current Weight (pounds): 172.4 Intervention Cutting Machine Tender Consult: Yes Nurse/patient discussion: Yes Diet Class: No Referral to Diabetes education: No Referral to lipid clinic: No Referral to weight mangement p: No Education Eating Healthy Education Goals Met: Yes Target goal LDL-C<100 if triglycerides are >200 Non-HDL-C should be <130 (1) LDL-C<70 for high risk patients (4) HbA1c<7% (1) BMI<25 Waist cir<40in M/<35in F (1) Education Date: Sep 27, 2018 Assessment: Followup/Discharge Learning Barriers: ready Family Support: Yes Tobacco use: No Tobacco Use Smokeless tobacco: No Intervention Referral to smoking cessation: No Individual education and couns: No Tobacco Adjunct: No Education class schedule given: No Attended education classes: No Education: CAD, Risk factors, med compliance, cardiac A&P, Angina S/S, Sexuality Education Goals Met: Yes Target Goals Complete cessation of tobacco use (1). Psychosocial Date: Sep 27, 2018 Assessment: Followup/Discharge Intervention Physician Consult: No Physician Referral: No Med Change: No Stress Management Class: No Uses Stress Management Skills: Yes Education Education: Coping Techniques, S/S depression, Relaxation Techniques Education Goals Met: Yes Target Goal Assess presence or absence of depression using a valid screening tool (1). Maximize coping skills (2). Positive support system (2). Patient/Program Goal Preventative Medication: Yes Aspirin, Yes Clopidogrel, Yes Statin/OTR lipid Lowering Fall Risk Assess: No Provider Assessment Session Number: 21 Jerman Marshall RN Sep 27, 2018 11:11
== END 2018-10-11 ==
LOC: M CR 09:04
PROVIDERS: ATTEND Internal Medicine Interventional Cardiology
DX: Z98.61 Coronary angioplasty status (principal)

== ENCOUNTER 2018-10-05 12:55 | Outpatient (RCR) | payer OTHER | END 2018-10-11 | LOC: M CR 12:55 | PROVIDERS: ATTEND Internal Medicine Interventional Cardiology | DX: Z98.61 Coronary angioplasty status (principal) ==

== ENCOUNTER 2019-02-17 18:31 | Inpatient (IN) | payer OTHER ==
[~2019-02-17] VITALS: Ht 165.1 cm; Wt 74.5 kg
[~2019-02-17 18:31] MED LIST changes: -/CELE20CA PO; -/ONDA4TA OR; -ASPI1TAB PO; +ASPI81TA26 PO; +CELE1CAP4 PO; +FLUT50SP12; -FLUTISP; +ONDA-1 OR; +TOPR25TA PO; -TOPR25TA13 PO
[2019-02-17] MEDS ORDERED: NS 1,000 ML IV ONE (19:15)
[2019-02-17] MEDS ORDERED: ONDANSETRON 4MG/2ML VIAL (J2405) IV ONE (19:15)
[2019-02-17 19:57] LABS: BASO % 0.5 % (0.0-1.0); EOS # 0.1 10^3/uL (0.0-0.50); EOS % 2.3 % (0.0-3.0); HEMATOCRIT 40.1 % (42.0-52.0); HEMOGLOBIN 13.6 g/dl (13.5-17.5); LYMPH # 1.3 10^3/uL (1.5-4.5); LYMPH % 31.1 % (24.0-44.0); MEAN CORPUSCULAR HEMOGLOBIN 30.4 pg (27.0-33.0); MEAN CORPUSCULAR HGB CONC 33.9 g/dl (32.0-36.5); MEAN CORPUSCULAR VOLUME 89.5 fl (80.0-96.0); MONO # 0.5 10^3/uL (0.0-0.8); MONO % 11.8 % (0.0-5.0); NEUTROPHILS # 2.3 10^3/uL (1.8-7.7); NEUTROPHILS % 54.1 % (36.0-66.0); PLATELET COUNT, AUTOMATED 197 10^3/uL (150-450); RED BLOOD COUNT 4.48 10^6/uL (4.30-6.10); WHITE BLOOD COUNT 4.3 10^3/uL (4.0-10.0)
[2019-02-17 20:09] LABS: INR 0.92; PARTIAL THROMBOPLASTIN TIME 25.5 SECONDS (25.4-37.6); PROTHROMBIN TIME 12.4 SECONDS (12.1-14.4)
[2019-02-17 20:26] LABS: ALBUMIN 3.9 GM/DL (3.2-5.2); ALT/SGPT 26 U/L (12-78); BILIRUBIN,DIRECT 0.3 MG/DL (0.0-0.2); BLOOD UREA NITROGEN 16 MG/DL (7-18); CALCIUM LEVEL 8.4 MG/DL (8.5-10.1); CARBON DIOXIDE LEVEL 22 MEQ/L (21-32); CHLORIDE LEVEL 112 MEQ/L (98-107); CREATININE FOR GFR 1.07 MG/DL (0.70-1.30); GLOMERULAR FILTRATION RATE > 60.0 (>56); GLUCOSE, FASTING 106 MG/DL (70-100); LIPASE 359 U/L (73-393); POTASSIUM SERUM 3.6 MEQ/L (3.5-5.1); SODIUM LEVEL 142 MEQ/L (136-145); TOTAL PROTEIN 7.4 GM/DL (6.4-8.2)
[2019-02-17] MEDS ORDERED: ISOVUE-370 76% 100ML VIAL (Q9967) As Ordered ONE (20:45)
[2019-02-17] MEDS ORDERED: METOCLOPRAMIDE INJ 10MG/2ML VIAL (J2765) IV ONE (22:30)
--- NOTE | 2019-02-17 22:35 | REPVR ---
EXAM: CT Abdomen and Pelvis With Contrast EXAM DATE/TIME: 02/17/2019 8:50 PM CLINICAL HISTORY: 58 years old, male; Abdominal pain; Generalized; Prior surgery; Surgery date: 6+ months TECHNIQUE: Imaging protocol: Axial computed tomography images of the abdomen and pelvis with intravenous contrast. Coronal and sagittal reformatted images were created and reviewed. Radiation optimization: All CT scans at this facility use at least one of these dose optimization techniques: automated exposure control; mA and/or kV adjustment per patient size (includes targeted exams where dose is matched to clinical indication); or iterative reconstruction. Contrast material: ISOVUE 370; Contrast volume: 100 ml; Contrast route: IV; COMPARISON: CT ABD/PEL W/IV CONTRAST ONLY 05/12/2018 5:29 AM FINDINGS: ABDOMEN: Liver: Normal. No mass. Gallbladder and bile ducts: The gallbladder is somewhat contracted with no stones. Pancreas: Normal. No ductal dilation. Spleen: Normal. No splenomegaly. Adrenals: Normal. No mass. Kidneys and ureters: Small nonobstructing right renal calculi. Stomach and bowel: Borderline distention of the stomach with food material. Fluid throughout the colon to the rectum consistent with diarrhea. Borderline to mild fluid distention of some small bowel segments with a few air fluid levels with normal distal ileum suggesting bowel obstruction or adynamic segment. The point of transition is not well defined and the distention may involve segments of small bowel. Findings may reflect enteritis or possibly low grade partial obstruction. A single definitive abrupt transition is not identified. Appendix: There are no changes of appendicitis. A normal appendix is not seen. PELVIS: Bladder: Unremarkable as visualized. Reproductive: Unremarkable as visualized. ABDOMEN and PELVIS: Intraperitoneal space: Normal. No free air. No significant fluid collection. Bones/joints: Degenerative changes of the lumbar spine with facet arthropathy. There is bilateral spondylolysis of L4 with grade 1 anterolisthesis 4 relative to L5 with degenerative interspace narrowing. Soft tissues: Midline broad-based umbilical containing a bowel segment and protrusion of the anterior wall of small bowel into a right periumbilical hernia. Vasculature: Normal. No abdominal aortic aneurysm. Lymph nodes: Normal. No enlarged lymph nodes. IMPRESSION: 1. The appearance is similar to a prior study of 05/12/2018. 2. Borderline to mild small bowel distention in varying segments of small bowel which is similar to the prior study and may reflect enteritis or adynamic segments. Partial obstruction is not excluded. 3. Broad-based umbilical hernia and right periumbilical hernia which contains bowel segments. This is similar to the prior study and may be related to a partial small bowel obstruction although no definitive abrupt transition is seen. 4. Bilateral spondylolysis of L4 with grade one anterior listhesis. 5. Small nonobstructing right renal calculi. 6. There is borderline distention of the stomach which in view of a somewhat contracted gallbladder likely reflects recent ingestion. 7. Fluid throughout the colon to the rectum consistent with diarrhea. Electronically signed by: Dawit Lockwood On 02/17/2019 22:35:02 PM
--- NOTE | 2019-02-17 23:09 | HPEPDOC ---
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 He states that he has been intermittently nauseous since then but has been holding off on coming in as he want to try to get over it on his own first as he has had his so many times before. He otherwise has no abdominal pain, fever, chills or any other complaints. He has been having bowel movements but not as regular as before and had one episode of diarrhea in the ER. CT scan showed mild SB distension. PAST MEDICAL HISTORY: Refer to [facility] PAST SURGICAL HISTORY: Complicated open appendectomy Lysis of adhesions Ventral hernia repair SOCIAL HISTORY: Denies tobacco, alcohol or illicit drug use. FAMILY HISTORY: None noted ALLERGIES: Please see below. REVIEW OF SYSTEMS: 10 point review of system negative except as stated in [facility] HOME MEDICATIONS: Please see below. PHYSICAL EXAMINATION: General: mild to moderate distress from nausea Eyes: Normal sclera, EOMI, [place] HENT: Atraumatic, neck supple, moist mucous membranes Cardiovascular: Normal rate, normal rhythm. No murmurs appreciated. Pulmonary: Clear to auscultation b/l, no wheezing GI: Soft, nontender, nondistended, normoactive bowel sounds Skin: Warm and dry Neuro: CN grossly intact. No focal deficits. Strengths equal b/l. Psych: oriented x 3 LABORATORY DATA: See below. IMAGING: CT Abdomen/Pelvis- IMPRESSION: 1. The appearance is similar to a prior study of 05/12/2018. 2. Borderline to mild small bowel distention in varying segments of small bowel which is similar to the prior study and may reflect enteritis or adynamic segments. Partial obstruction is not excluded. 3. Broad-based umbilical hernia and right periumbilical hernia which contains bowel segments. This is similar to the prior study and may be related to a partial small bowel obstruction although no definitive abrupt transition is seen. 4. Bilateral spondylolysis of L4 with grade one anterior listhesis. 5. Small nonobstructing right renal calculi. 6. There is borderline distention of the stomach which in view of a somewhat contracted gallbladder likely reflects recent ingestion. 7. Fluid throughout the colon to the rectum consistent with diarrhea. MICROBIOLOGY: Please see below. ASSESSMENT AND PLAN: 1. Ileus/SB inflammation - No complete obstruction noted on imaging and patient has been having bowel movements. - Unsure if he has had a SBO that is progressing or resolving. - Will keep NPO at this time, NGT to be placed. - IVF support. Zofran for nausea. - Surgery consulted. 2. CAD/ME - resume home meds as soon as patient can tolerate PO. DVT ppx: Lovenox and SCD Code status: Full code Laboratory Data Labs 24H Laboratory Tests 2 02/17/19 19:51: Immature Granulocyte % (Auto) 0.2, White Blood Count 4.3, Red Blood Count 4.48, Hemoglobin 13.6, Hematocrit 40.1L, Mean Corpuscular Volume 89.5, Mean Corpuscular Hemoglobin 30.4, Mean Corpuscular Hemoglobin Concent 33.9, Red Cell Distribution Width 12.3, Platelet Count 197, Neutrophils (%) (Auto) 54.1, Lymphocytes (%) (Auto) 31.1, Monocytes (%) (Auto) 11.8H, Eosinophils (%) (Auto) 2.3, Basophils (%) (Auto) 0.5, Neutrophils # (Auto) 2.3, Lymphocytes # (Auto) 1.3L, Monocytes # (Auto) 0.5, Eosinophils # (Auto) 0.1, Basophils # (Auto) 0.0, Nucleated Red Blood Cells % (auto) 0.0, Prothrombin Time 12.4, Prothromb Time International Ratio 0.92, Activated Partial Thromboplast Time 25.5, Anion Gap 8, Glomerular Filtration Rate > 60.0, Calcium Level 8.4L, Aspartate Amino Transf (AST/SGOT) 19, Alanine Aminotransferase (ALT/SGPT) 26, Alkaline Phosphatase 59, Total Bilirubin 1.0, Direct Bilirubin 0.3H, Total Protein 7.4, Albumin 3.9, Albumin/Globulin Ratio 1.11, Lipase 359 CBC/BMP Laboratory Tests 02/17/19 19:51 Red Blood Count 4.48, Mean Corpuscular Volume 89.5, Mean Corpuscular Hemoglobin 30.4, Mean Corpuscular Hemoglobin Concent 33.9, Red Cell Distribution Width 12.3, Neutrophils (%) (Auto) 54.1, Lymphocytes (%) (Auto) 31.1, Monocytes (%) (Auto) 11.8 H, Eosinophils (%) (Auto) 2.3, Basophils (%) (Auto) 0.5, Neutrophils # (Auto) 2.3, Lymphocytes # (Auto) 1.3 L, Monocytes # (Auto) 0.5, Eosinophils # (Auto) 0.1, Basophils # (Auto) 0.0 Home Medications Scheduled Aspirin (Aspirin EC) 81 Mg Tabec, 81 MG PO DAILY Atorvastatin Calcium (Lipitor) 80 Mg Tab, 80 MG PO DAILY Clopidogrel Bisulfate (Plavix) 75 Mg Tab, 75 MG PO DAILY Omeprazole (Omeprazole) 40 Mg Cap, 40 MG PO DAILY Allergies Coded Allergies: ramipril (Verified Allergy, Unknown, swelling, 02/17/19) codeine (Verified Adverse Reaction, Unknown, nausea/vomiting, 02/17/19) meperidine (Verified Adverse Reaction, Unknown, nausea/vomiting, 02/17/19) A-FIB/CHADSVASC A-FIB History Current/History of A-Fib/PAF?: No PASTOR CARRASCO MD Feb 17, 2019 23:08
[2019-02-17] MEDS ORDERED: LORazepam 2 MG/ML VIAL (J2060) IV STA (23:39)
[2019-02-18] MEDS: NS 1,000 ML IV SCH ×3 (01:38→16:34)
[2019-02-18 02:00] VITALS: BP 112/71
[2019-02-18 06:00] VITALS: BP 114/71
[2019-02-18 07:46] LABS: HEMATOCRIT 34.3 % (42.0-52.0); HEMOGLOBIN 11.7 g/dl (13.5-17.5); MEAN CORPUSCULAR HGB CONC 34.1 g/dl (32.0-36.5); PLATELET COUNT, AUTOMATED 166 10^3/uL (150-450); RED BLOOD COUNT 3.77 10^6/uL (4.30-6.10); WHITE BLOOD COUNT 3.6 10^3/uL (4.0-10.0)
[2019-02-18 08:05] LABS: BLOOD UREA NITROGEN 13 MG/DL (7-18); CALCIUM LEVEL 7.6 MG/DL (8.5-10.1); CARBON DIOXIDE LEVEL 23 MEQ/L (21-32); CHLORIDE LEVEL 116 MEQ/L (98-107); CREATININE FOR GFR 0.98 MG/DL (0.70-1.30); GLOMERULAR FILTRATION RATE > 60.0 (>56); GLUCOSE, FASTING 106 MG/DL (70-100); POTASSIUM SERUM 3.5 MEQ/L (3.5-5.1); SODIUM LEVEL 144 MEQ/L (136-145)
--- NOTE | 2019-02-18 08:39 | REP ---
Chest one-view HISTORY: NG tube placement Comparison: 05/02/2018 The lungs are clear. The heart is normal in size. The pulmonary vasculature is normal in appearance. An NG tube is present in the stomach. Impression: 1. No acute disease. 2. An NG tube is present in the stomach. Electronically Signed by Flo Vaz MD 02/18/2019 08:29 A
[2019-02-18] MEDS: ENOXAPARIN 40 MG/0.4 ML SYRINGE (J1650) SC SCH (08:51)
[2019-02-18 10:00] VITALS: BP 104/61
--- NOTE | 2019-02-18 11:29 | IPNPDOC ---
Subjective Date Seen The patient was seen on 02/18/19. Subjective Chief Complaint/HPI Pt this morning reports that he is feeling much better. He is moving his bowels, abd is less tender and distended. He denies nausea. GS has been to see him. General: Denies: Fatigue Constitutional: Denies: Chills, Fever Pulmonary: Denies: Dyspnea, Cough Cardiovascular: Denies: Chest Pain, Palpitations Gastrointestinal: Denies: Nausea, Vomiting, Abdominal Pain, Diarrhea Neurological: Denies: Weakness Psych: Reports: Mood Normal Objective Physical Examination General Exam: Positive: Alert, Cooperative, No Acute Distress ENT Exam: Positive: Mucous membr. moist/pink; Negative: Nares Patent (NG tube present) Neck Exam: Positive: Supple Chest Exam: Positive: Clear to auscultation, Normal air movement Heart Exam: Positive: Rate Normal, Normal S1, Normal S2 Abdomen Exam: Positive: BS Hypoactive, Soft; Negative: Tenderness Extremity Exam: Negative: Edema Neuro Exam: Positive: Normal Speech Psych Exam: Positive: Mood NL Assessment /Plan Problems (1) Small bowel obstruction Status: Acute Response to Treatment: Stable, Improving Discussed With: Patient Problem Specific Plan: Consult Specialist, Monitor Clinically, Repeat Labs Problem Text: Pt is clinically improving. GS following, NG in place. + BM. Cont IVF (2) Obstructive sleep apnea Status: Chronic Response to Treatment: Stable Problem Specific Plan: Monitor Clinically Problem Text: Home CPAP encouraged. (3) Type 2 diabetes mellitus Status: Chronic Response to Treatment: Stable Problem Specific Plan: Monitor Clinically Plan/VTE VTE Prophylaxis Ordered?: Yes VS, I&O, [facility], [facility] Vital Signs/I&O Vital Signs Date Time Temp Pulse Resp B/P (MAP) Pulse Ox O2 Delivery O2 Flow Rate FiO2 02/18/19 10:00 98.2 63 16 104/61 (75) 99 02/18/19 01:07 Room Air I&O- Last 24 Hours up to 6 AM 02/18/19 06:00 Intake Total 1000 ml Output Total 300 ml Balance 700 ml Laboratory Data 24H LABS Laboratory Tests 2 02/17/19 19:51: Immature Granulocyte % (Auto) 0.2, White Blood Count 4.3, Red Blood Count 4.48, Hemoglobin 13.6, Hematocrit 40.1L, Mean Corpuscular Volume 89.5, Mean Corpuscular Hemoglobin 30.4, Mean Corpuscular Hemoglobin Concent 33.9, Red Cell Distribution Width 12.3, Platelet Count 197, Neutrophils (%) (Auto) 54.1, Lymphocytes (%) (Auto) 31.1, Monocytes (%) (Auto) 11.8H, Eosinophils (%) (Auto) 2.3, Basophils (%) (Auto) 0.5, Neutrophils # (Auto) 2.3, Lymphocytes # (Auto) 1.3L, Monocytes # (Auto) 0.5, Eosinophils # (Auto) 0.1, Basophils # (Auto) 0.0, Nucleated Red Blood Cells % (auto) 0.0, Prothrombin Time 12.4, Prothromb Time International Ratio 0.92, Activated Partial Thromboplast Time 25.5, Anion Gap 8, Glomerular Filtration Rate > 60.0, Calcium Level 8.4L, Aspartate Amino Transf (AST/SGOT) 19, Alanine Aminotransferase (ALT/SGPT) 26, Alkaline Phosphatase 59, Total Bilirubin 1.0, Direct Bilirubin 0.3H, Total Protein 7.4, Albumin 3.9, Albumin/Globulin Ratio 1.11, Lipase 359 02/18/19 07:35: Nucleated Red Blood Cells % (auto) 0.0, Anion Gap 5L, Glomerular Filtration Rate > 60.0, Calcium Level 7.6L, Blood Urea Nitrogen 13, Creatinine 0.98, Sodium Level 144, Potassium Level 3.5, Chloride Level 116H, Carbon Dioxide Level 23 CBC/BMP Laboratory Tests 02/17/19 19:51 Red Blood Count 4.48, Mean Corpuscular Volume 89.5, Mean Corpuscular Hemoglobin 30.4, Mean Corpuscular Hemoglobin Concent 33.9, Red Cell Distribution Width 12.3, Neutrophils (%) (Auto) 54.1, Lymphocytes (%) (Auto) 31.1, Monocytes (%) (Auto) 11.8 H, Eosinophils (%) (Auto) 2.3, Basophils (%) (Auto) 0.5, Neutrophils # (Auto) 2.3, Lymphocytes # (Auto) 1.3 L, Monocytes # (Auto) 0.5, Eosinophils # (Auto) 0.1, Basophils # (Auto) 0.0 02/18/19 07:35 Red Blood Count 3.77 L, Mean Corpuscular Volume 91.0, Mean Corpuscular Hemoglobin 31.0, Mean Corpuscular Hemoglobin Concent 34.1, Red Cell Distribution Width 12.5, Calcium Level 7.6 L SEJAL WORKMAN PA-C Feb 18, 2019 11:29
[2019-02-18 14:00] VITALS: BP 106/60
--- NOTE | 2019-02-18 14:12 | REP ---
ACUTE ABDOMINAL SERIES: THREE VIEWS. HISTORY: Ileus. COMPARISON STUDY: February 18, 2019 chest x-ray and May 13, 2018 prior radiographs of the chest and abdomen. FINDINGS: Upright chest radiograph demonstrates a nasogastric tube in place in the gastric fundus. The lungs are well inflated and clear. There is no evidence of infiltrate or free subdiaphragmatic air. Heart size is normal. Supine and erect views of the abdomen show some air and liquid in nondistended loops of colon both proximally and distally. There is a solitary loop of air and fluid-filled small bowel in the right mid abdomen showing mild to moderate dilation, 6.0 cm in transverse dimension. This displays air-fluid levels. Contrast opacified urine is seen within the urinary bladder. IMPRESSION: Large and small bowel air-fluid levels. Single loop of dilated small bowel in the right mid abdomen. NG tube to the left upper quadrant. Electronically Signed by Jose Garay MD 02/18/2019 03:49 P
[2019-02-18 16:00] VITALS: BP 102/64
[2019-02-18] MEDS: LR 1,000 ML IV SCH (17:55)
[2019-02-18 22:00] VITALS: BP 101/65
[2019-02-19] MEDS: LR 1,000 ML IV SCH ×2 (01:06→09:43)
[2019-02-19 02:00] VITALS: BP 110/67
[2019-02-19 06:00] VITALS: BP 114/59
[2019-02-19 06:40] LABS: BASO % 0.6 % (0.0-1.0); EOS # 0.2 10^3/uL (0.0-0.50); EOS % 4.1 % (0.0-3.0); HEMATOCRIT 32.4 % (42.0-52.0); HEMOGLOBIN 11.1 g/dl (13.5-17.5); LYMPH # 1.7 10^3/uL (1.5-4.5); LYMPH % 46.6 % (24.0-44.0); MEAN CORPUSCULAR HEMOGLOBIN 31.1 pg (27.0-33.0); MEAN CORPUSCULAR HGB CONC 34.3 g/dl (32.0-36.5); MEAN CORPUSCULAR VOLUME 90.8 fl (80.0-96.0); MONO # 0.4 10^3/uL (0.0-0.8); MONO % 11.6 % (0.0-5.0); NEUTROPHILS # 1.3 10^3/uL (1.8-7.7); NEUTROPHILS % 36.8 % (36.0-66.0); PLATELET COUNT, AUTOMATED 167 10^3/uL (150-450); RED BLOOD COUNT 3.57 10^6/uL (4.30-6.10); WHITE BLOOD COUNT 3.6 10^3/uL (4.0-10.0)
[2019-02-19 07:13] LABS: ALBUMIN 2.7 GM/DL (3.2-5.2); ALT/SGPT 16 U/L (12-78); BILIRUBIN,TOTAL 0.6 MG/DL (0.2-1.0); BLOOD UREA NITROGEN 8 MG/DL (7-18); CARBON DIOXIDE LEVEL 24 MEQ/L (21-32); CHLORIDE LEVEL 114 MEQ/L (98-107); CREATININE FOR GFR 0.93 MG/DL (0.70-1.30); GLOMERULAR FILTRATION RATE > 60.0 (>56); GLUCOSE, FASTING 93 MG/DL (70-100); MAGNESIUM LEVEL 1.6 MG/DL (1.8-2.4); POTASSIUM SERUM 3.3 MEQ/L (3.5-5.1); SODIUM LEVEL 144 MEQ/L (136-145); TOTAL PROTEIN 5.6 GM/DL (6.4-8.2)
[2019-02-19] MEDS ORDERED: OMEPRAZOLE 20 MG CAP PO SCH (09:00)
[2019-02-19] MEDS: ENOXAPARIN 40 MG/0.4 ML SYRINGE (J1650) SC SCH (09:13)
--- NOTE | 2019-02-19 09:13 | IPN ---
DATE OF SERVICE: 02/19/2019 The patient is here for a small bowel obstruction. Essentially, had an nasogastric (NG) tube and developed some bowel movements in the emergency room yesterday. Was looking much better in the morning. We took out his NG tube and started him on some clear liquids. He is tolerating clear liquids overnight but still had a little bit of some small bowel that was dilated; and thus, I ordered a clear-liquid diet. He tolerated that overnight. He has been afebrile and otherwise states that he is otherwise feeling well. He has not had any further bowel movements but has had flatus and overall feels well without any crampy abdominal pain. His abdomen is soft, nondistended. His hernias are reducible. IMPRESSION AND PLAN: The patient had a small bowel obstruction. It seems to be resolving at this time. Will start him on a regular diet. If he tolerates this, I would recommend that he be discharged to home. He can followup with Dr. Swenson as an outpatient in the next few weeks, as his preference, and otherwise followup with his primary care provider. No change in dietary is recommended at this time and no change in medications.
[2019-02-19] MEDS ORDERED: POTASSIUM CHLORIDE 10 MEQ SR TABLET PO ONE (12:15)
[2019-02-19] MEDS ORDERED: MAG SULF 1GM/100ML (MAG RUN) 1 GM in APPROPRIATE DILUENT 1 EA IV ONE (12:15)
[2019-02-19 14:00] VITALS: BP 97/58
[2019-02-19 15:51] VITALS: BP 112/64
--- NOTE | 2019-02-19 17:40 | DSES ---
DATE OF ADMISSION: 02/18/2019 DATE OF DISCHARGE: 02/19/2019 PRIMARY CARE PROVIDER: Dr. Mason Roe ATTENDING PHYSICIAN: Dr. Mason Roe HISTORY: This is a 58-year-old male patient with a history of recurrent small bowel obstruction (SBO) secondary to adhesions with a history of lysis of adhesions who has known coronary artery disease, who presents with persistent nausea. He was admitted with ileus, kept nothing by mouth, nasogastric (NG) tube was placed, IV fluids were started as well as Zofran. He had improvement of his abdominal distension. CT imaging was without any obvious obstruction. Followup x-ray of the abdomen on 02/18/2019 was suggestive of large and small bowel air fluid levels, single loop of dilated small bowel in the right mid abdomen, and noted the NG tube placement. The patient began moving his bowels. His abdomen distension as well as nausea improved. His NG tube was discontinued. His diet was advanced. He is now on a regular diet and tolerating this well. He is eager to return home. DISCHARGE DIAGNOSES: Include: 1. Small bowel obstruction. 2. Obstructive sleep apnea. 3. Diabetes mellitus, type 2. DISCHARGE MEDICATIONS: Include: - aspirin 81 mg daily - atorvastatin 80 mg daily - Plavix 75 mg daily - omeprazole 40 mg daily His followup is with his primary care provider (PCP) in one week. Activity as tolerated. Diet is low-cholesterol.
== END 2019-02-19 17:22 | disposition home or self-care (01) | DRG 247 ==
LOC: M ED 18:31 → M ED INP 02-18 00:25 → M MSPAV 02-18 01:52
PROVIDERS: ADMIT Student in an Organized Health Care Education/Training Program; ATTEND Family Medicine
DX: K56.51 Intestinal adhesions [bands], with partial obstruction (principal); E11.9 Type 2 diabetes mellitus without complications; G47.33 Obstructive sleep apnea (adult) (pediatric); Z79.82 Long term (current) use of aspirin; Z79.899 Other long term (current) drug therapy; I25.10 Atherosclerotic heart disease of native coronary artery without angina pectoris; I25.2 Old myocardial infarction; Z88.5 Allergy status to narcotic agent; Z88.8 Allergy status to other drugs, medicaments and biological substances

== ENCOUNTER → 2019-04-03 | Outpatient (REF) | payer OTHER ==
[~2019-04-03] MED LIST changes: -OMEP20CA3 PO; +OMEP20CA4 PO
[2019-04-03 17:31] LABS: BLOOD UREA NITROGEN 20 MG/DL (7-18); CARBON DIOXIDE LEVEL 27 MEQ/L (21-32); CHLORIDE LEVEL 106 MEQ/L (98-107); CREATININE FOR GFR 1.14 MG/DL (0.70-1.30); GLOMERULAR FILTRATION RATE > 60.0 (>56); GLUCOSE, FASTING 107 MG/DL (70-100); MAGNESIUM LEVEL 2.3 MG/DL (1.8-2.4); POTASSIUM SERUM 4.4 MEQ/L (3.5-5.1); SODIUM LEVEL 139 MEQ/L (136-145)
[2019-04-03 18:12] LABS: CREATININE, URINE 81.7 MG/DL; MALB URINE SIEMENS 30.7 MG/L; MAU/CREAT RATIO 37.5 MCG/MG (0.0-30.0)
[2019-04-03 18:13] LABS: HEMOGLOBIN A1c 6.3 %
== END ==
LOC: M SFHCCLAY 10:54
PROVIDERS: ATTEND Family Medicine
DX: Z87.19 Personal history of other diseases of the digestive system (principal); I25.10 Atherosclerotic heart disease of native coronary artery without angina pectoris; E11.9 Type 2 diabetes mellitus without complications; E83.42 Hypomagnesemia

== ENCOUNTER → 2019-10-11 | Outpatient (REF) | payer OTHER ==
[~2019-10-11] MED LIST changes: +OMEP1CAP73 PO; -OMEP20CA4 PO; -OMEP40CA2 PO; +OMEP40CA97 PO
[2019-10-11 12:34] LABS: ALT/SGPT 27 U/L (12-78); BLOOD UREA NITROGEN 23 MG/DL (7-18); CALCIUM LEVEL 8.8 MG/DL (8.5-10.1); CARBON DIOXIDE LEVEL 28 MEQ/L (21-32); CHLORIDE LEVEL 106 MEQ/L (98-107); CHOLESTEROL LEVEL 159 MG/DL (<200); CHOLESTEROL RISK RATIO 2.338 (<5); CREATININE FOR GFR 1.12 MG/DL (0.70-1.30); GLOMERULAR FILTRATION RATE > 60.0 (>56); GLUCOSE, FASTING 118 MG/DL (70-100); HDL CHOLESTEROL 68 MG/DL (>40); HEMOGLOBIN A1c 6.6 %; LDL CHOLESTEROL 72 MG/DL (<100); NON-HDL-C 91 MG/DL; POTASSIUM SERUM 4.5 MEQ/L (3.5-5.1); SODIUM LEVEL 139 MEQ/L (136-145); TRIGLYCERIDES LEVEL 93 MG/DL (<150)
== END ==
LOC: M SFHCCLAY 07:34
PROVIDERS: ATTEND Family Medicine
DX: E11.9 Type 2 diabetes mellitus without complications (principal); I25.10 Atherosclerotic heart disease of native coronary artery without angina pectoris

== ENCOUNTER → 2020-01-30 | Outpatient (CLI) | payer OTHER ==
--- NOTE | 2020-01-31 00:50 | REP ---
Clinical: Left-sided pain . Technique: Internal rotation, external rotation, and Y view left shoulder . Findings: No acute fracture or dislocation. The acromioclavicular and glenohumeral joints are intact. No periarticular calcifications or degenerative changes are appreciated. Sub acromial space is normal. Surrounding soft tissues are unremarkable. Impression: Normal age-appropriate left shoulder radiographs. Electronically Signed by Reilly Rasmussen MD 01/31/2020 12:42 A
== END ==
LOC: M CLY 10:46
PROVIDERS: ATTEND Family Medicine
DX: M75.92 Shoulder lesion, unspecified, left shoulder (principal); M75.42 Impingement syndrome of left shoulder

== ENCOUNTER → 2020-03-20 | Outpatient (REF) | payer OTHER ==
[2020-03-20 11:38] LABS: ALBUMIN 3.8 GM/DL (3.2-5.2); ALT/SGPT 45 U/L (12-78); BILIRUBIN,TOTAL 0.6 MG/DL (0.2-1.0); BLOOD UREA NITROGEN 22 MG/DL (7-18); CALCIUM LEVEL 9.2 MG/DL (8.5-10.1); CARBON DIOXIDE LEVEL 26 MEQ/L (21-32); CHLORIDE LEVEL 106 MEQ/L (98-107); CHOLESTEROL LEVEL 155 MG/DL (<200); CHOLESTEROL RISK RATIO 2.767 (<5); CREATININE FOR GFR 1.15 MG/DL (0.70-1.30); GLOMERULAR FILTRATION RATE > 60.0 (>56); GLUCOSE, FASTING 133 MG/DL (70-100); HDL CHOLESTEROL 56 MG/DL (>40); LDL CHOLESTEROL 80 MG/DL (<100); NON-HDL-C 99 MG/DL; POTASSIUM SERUM 4.1 MEQ/L (3.5-5.1); SODIUM LEVEL 140 MEQ/L (136-145); TOTAL PROTEIN 7.4 GM/DL (6.4-8.2); TRIGLYCERIDES LEVEL 96 MG/DL (<150)
[2020-03-20 11:56] LABS: HEMOGLOBIN A1c 6.7 %
[2020-03-20 13:24] LABS: CREATININE, URINE 85.9 MG/DL; MALB URINE SIEMENS 14.5 MG/L; MAU/CREAT RATIO 16.8 MCG/MG (0.0-30.0)
== END ==
LOC: M SFHCCLAY 07:29
PROVIDERS: ATTEND Family Medicine
DX: E11.9 Type 2 diabetes mellitus without complications (principal); I25.10 Atherosclerotic heart disease of native coronary artery without angina pectoris; K21.9 Gastro-esophageal reflux disease without esophagitis

== ENCOUNTER → 2020-11-06 | Outpatient (REF) | payer OTHER ==
[~2020-11-06] MED LIST changes: +ASPI-569 PO; -ASPI81TAEC PO
[2020-11-06 16:42] LABS: BLOOD UREA NITROGEN 13 MG/DL (7-18); CALCIUM LEVEL 9.2 MG/DL (8.5-10.1); CARBON DIOXIDE LEVEL 29 MEQ/L (21-32); CHLORIDE LEVEL 107 MEQ/L (98-107); CREATININE FOR GFR 1.12 MG/DL (0.70-1.30); GLOMERULAR FILTRATION RATE > 60.0 (>56); GLUCOSE, FASTING 113 MG/DL (70-100); HEMOGLOBIN A1c 6.6 %; POTASSIUM SERUM 4.3 MEQ/L (3.5-5.1); SODIUM LEVEL 139 MEQ/L (136-145)
[2020-11-09 17:06] LABS: INSULIN LEVEL 10.1 uIU/mL (2.6-24.9)
== END ==
LOC: M SFHCCLAY 07:11
PROVIDERS: ATTEND Family Medicine
DX: E16.1 Other hypoglycemia (principal); R73.09 Other abnormal glucose

== ENCOUNTER → 2021-06-29 | Outpatient (REF) | payer MEDICARE ==
[~2021-06-29] MED LIST changes: +OMEP40CA4 PO; -OMEP40CA97 PO; -SIME180C PO; +SIME180C25 PO
[2021-06-29 13:03] LABS: HEMOGLOBIN A1c 8.1 %
== END ==
LOC: M SFHCCLAY 09:10
PROVIDERS: ATTEND Family Medicine
DX: E11.9 Type 2 diabetes mellitus without complications (principal)

== ENCOUNTER → 2021-10-04 | Outpatient (REF) | payer MEDICARE ==
[2021-10-04 11:38] LABS: HEMATOCRIT 41.7 % (42.0-52.0); HEMOGLOBIN 13.9 g/dl (13.5-17.5); MEAN CORPUSCULAR HGB CONC 33.3 g/dl (32.0-36.5); MEAN CORPUSCULAR VOLUME 90.1 fl (80.0-96.0); PLATELET COUNT, AUTOMATED 210 10^3/uL (150-450); RED BLOOD COUNT 4.63 10^6/uL (4.30-6.10); WHITE BLOOD COUNT 5.7 10^3/uL (4.0-10.0)
[2021-10-04 13:29] LABS: ALBUMIN 4.3 GM/DL (3.2-5.2); ALT/SGPT 38 U/L (12-78); BILIRUBIN,TOTAL 0.6 MG/DL (0.2-1.0); BLOOD UREA NITROGEN 20 MG/DL (7-18); CALCIUM LEVEL 9.2 MG/DL (8.5-10.1); CARBON DIOXIDE LEVEL 26 MEQ/L (21-32); CHLORIDE LEVEL 106 MEQ/L (98-107); CHOLESTEROL LEVEL 183 MG/DL (<200); CREATININE FOR GFR 1.07 MG/DL (0.70-1.30); GLOMERULAR FILTRATION RATE > 60.0 (>56); GLUCOSE, FASTING 163 MG/DL (70-100); HDL CHOLESTEROL 75 MG/DL (>40); LDL CHOLESTEROL 87 MG/DL (<100); NON-HDL-C 108 MG/DL; POTASSIUM SERUM 4.4 MEQ/L (3.5-5.1); SODIUM LEVEL 139 MEQ/L (136-145); TOTAL PROTEIN 7.6 GM/DL (6.4-8.2); TRIGLYCERIDES LEVEL 106 MG/DL (<150)
[2021-10-04 13:50] LABS: HEMOGLOBIN A1c 8.1 %
== END ==
LOC: M SFHCCLAY 08:47
PROVIDERS: ATTEND Family Medicine
DX: K21.9 Gastro-esophageal reflux disease without esophagitis (principal); E11.9 Type 2 diabetes mellitus without complications; E78.2 Mixed hyperlipidemia

== ENCOUNTER → 2021-12-29 | Outpatient (REF) | payer MEDICARE, OTHER ==
[2021-12-29 11:43] LABS: BLOOD UREA NITROGEN 19 MG/DL (7-18); CALCIUM LEVEL 8.7 MG/DL (8.5-10.1); CARBON DIOXIDE LEVEL 26 MEQ/L (21-32); CHLORIDE LEVEL 111 MEQ/L (98-107); CREATININE FOR GFR 1.03 MG/DL (0.70-1.30); GLOMERULAR FILTRATION RATE > 60.0 (>56); GLUCOSE, FASTING 156 MG/DL (70-100); SODIUM LEVEL 141 MEQ/L (136-145)
== END ==
LOC: M SFHCCLAY 07:18
PROVIDERS: ATTEND Family Medicine
DX: E11.9 Type 2 diabetes mellitus without complications (principal)

== ENCOUNTER → 2022-04-04 | Outpatient (REF) | payer MEDICARE, OTHER ==
[2022-04-04 12:04] LABS: APPEARANCE, URINE CLEAR (CLEAR); BACTERIA, URINE AUTO NEGATIVE (NEGATIVE); BILIRUBIN, URINE AUTO NEGATIVE (NEGATIVE); BLOOD, URINE BLOOD NEGATIVE (NEGATIVE); COLOR, URINE YELLOW (YELLOW); GLUCOSE, URINE (UA) AUTO 3+ mg/dL (NEGATIVE); KETONE, URINE AUTO TRACE mg/dL (NEGATIVE); LEUKOCYTE ESTERASE, URINE AUTO NEGATIVE (NEGATIVE); NITRITE, URINE AUTO NEGATIVE (NEGATIVE); PROTEIN, URINE AUTO NEGATIVE (NEGATIVE); RBC, URINE AUTO 0 /HPF (0-3); SPECIFIC GRAVITY URINE AUTO 1.025 (1.002-1.035); SQUAMOUS EPITHELIAL CELL UR AU 0 /HPF (0-6); UROBILINOGEN, URINE AUTO 0.2 mg/dL (0.0-2.0); WBC, URINE AUTO 0 /HPF (0-3)
[2022-04-04 12:58] LABS: ALT/SGPT 36 U/L (12-78); BILIRUBIN,TOTAL 0.6 MG/DL (0.2-1.0); BLOOD UREA NITROGEN 17 MG/DL (7-18); CALCIUM LEVEL 9.1 MG/DL (8.5-10.1); CARBON DIOXIDE LEVEL 25 MEQ/L (21-32); CHLORIDE LEVEL 108 MEQ/L (98-107); CHOLESTEROL LEVEL 187 MG/DL (<200); CHOLESTEROL RISK RATIO 2.337 (<5); CREATININE FOR GFR 1.06 MG/DL (0.70-1.30); GLOMERULAR FILTRATION RATE > 60.0 (>56); GLUCOSE, FASTING 145 MG/DL (70-100); HDL CHOLESTEROL 80 MG/DL (>40); LDL CHOLESTEROL 93 MG/DL (<100); NON-HDL-C 107 MG/DL; POTASSIUM SERUM 4.4 MEQ/L (3.5-5.1); SODIUM LEVEL 139 MEQ/L (136-145); TOTAL PROTEIN 7.2 GM/DL (6.4-8.2); TRIGLYCERIDES LEVEL 69 MG/DL (<150)
[2022-04-04 13:53] LABS: CREATININE, URINE 95.2 MG/DL; MALB URINE SIEMENS 29.2 MG/L; MAU/CREAT RATIO 30.6 MCG/MG (0.0-30.0)
[2022-04-05 00:22] LABS: HEMOGLOBIN A1c 7.2 %
== END ==
LOC: M SFHCCLAY 08:00
PROVIDERS: ATTEND Family Medicine
DX: E11.9 Type 2 diabetes mellitus without complications (principal); I25.10 Atherosclerotic heart disease of native coronary artery without angina pectoris

== ENCOUNTER → 2022-07-05 | Outpatient (REF) | payer MEDICARE, OTHER ==
[2022-07-05 12:10] LABS: HEMOGLOBIN A1c 7.2 %
[2022-07-05 12:29] LABS: BLOOD UREA NITROGEN 18 MG/DL (7-18); CARBON DIOXIDE LEVEL 25 MEQ/L (21-32); CHLORIDE LEVEL 105 MEQ/L (98-107); CHOLESTEROL LEVEL 170 MG/DL (<200); CHOLESTEROL RISK RATIO 2.297 (<5); CREATININE FOR GFR 1.03 MG/DL (0.70-1.30); GLOMERULAR FILTRATION RATE > 60.0 (>56); GLUCOSE, FASTING 148 MG/DL (70-100); HDL CHOLESTEROL 74 MG/DL (>40); LDL CHOLESTEROL 79 MG/DL (<100); NON-HDL-C 96 MG/DL; POTASSIUM SERUM 4.5 MEQ/L (3.5-5.1); SODIUM LEVEL 137 MEQ/L (136-145); TRIGLYCERIDES LEVEL 86 MG/DL (<150)
== END ==
LOC: M SFHCCLAY 08:56
PROVIDERS: ATTEND Family Medicine
DX: E11.9 Type 2 diabetes mellitus without complications (principal); Z95.5 Presence of coronary angioplasty implant and graft

== ENCOUNTER → 2022-12-09 | Outpatient (REF) | payer MEDICARE, OTHER ==
[~2022-12-09] MED LIST changes: +CLOP75TA99 PO; -PLAV1TAB2 PO
[2022-12-09 12:11] LABS: BLOOD UREA NITROGEN 25 MG/DL (9-23); CALCIUM LEVEL 9.5 MG/DL (8.3-10.6); CARBON DIOXIDE LEVEL 25 MMOL/L (20-31); CHLORIDE LEVEL 106 MMOL/L (98-107); CREATININE FOR GFR 1.06 MG/DL (0.70-1.30); GLOMERULAR FILTRATION RATE > 60.0 (>49); GLUCOSE, FASTING 170 MG/DL (74-106); POTASSIUM SERUM 4.5 MMOL/L (3.5-5.1); SODIUM LEVEL 138 MMOL/L (136-145)
[2022-12-09 12:21] LABS: HEMOGLOBIN A1c 8.3 % (4.0-6.0)
== END ==
LOC: M SFHCCLAY 07:43
PROVIDERS: ATTEND Family Medicine
DX: E11.9 Type 2 diabetes mellitus without complications (principal); I25.10 Atherosclerotic heart disease of native coronary artery without angina pectoris

== ENCOUNTER → 2023-03-07 | Outpatient (REF) | payer MEDICARE, OTHER ==
[~2023-03-07] MED LIST changes: +GLIP5TAB8 PO; +ROSU20TA61 PO
== END ==
LOC: M SFHCCLAY 15:53
PROVIDERS: ATTEND Family Medicine
DX: Z12.5 Encounter for screening for malignant neoplasm of prostate (principal); N40.1 Benign prostatic hyperplasia with lower urinary tract symptoms; N13.8 Other obstructive and reflux uropathy; E11.9 Type 2 diabetes mellitus without complications

== ENCOUNTER → 2023-03-08 | Outpatient (REF) | payer MEDICARE, OTHER ==
[2023-03-08 12:06] LABS: APPEARANCE, URINE CLEAR (CLEAR); BACTERIA, URINE AUTO NEGATIVE (NEGATIVE); BILIRUBIN, URINE AUTO NEGATIVE (NEGATIVE); BLOOD UREA NITROGEN 18 MG/DL (9-23); BLOOD, URINE BLOOD NEGATIVE (NEGATIVE); CALCIUM LEVEL 9.7 MG/DL (8.3-10.6); CARBON DIOXIDE LEVEL 24 MMOL/L (20-31); CHLORIDE LEVEL 105 MMOL/L (98-107); COLOR, URINE YELLOW (YELLOW); CREATININE FOR GFR 0.86 MG/DL (0.70-1.30); GLOMERULAR FILTRATION RATE > 60.0 (>49); GLUCOSE, FASTING 261 MG/DL (74-106); GLUCOSE, URINE (UA) AUTO 3+ mg/dL (NEGATIVE); KETONE, URINE AUTO NEGATIVE (NEGATIVE); LEUKOCYTE ESTERASE, URINE AUTO NEGATIVE (NEGATIVE); MUCUS, URINE SMALL (NEGATIVE); NITRITE, URINE AUTO NEGATIVE (NEGATIVE); POTASSIUM SERUM 4.1 MMOL/L (3.5-5.1); PROTEIN, URINE AUTO 1+ mg/dL (NEGATIVE); RBC, URINE AUTO 0 /HPF (0-3); SODIUM LEVEL 134 MMOL/L (136-145); SPECIFIC GRAVITY URINE AUTO 1.029 (1.002-1.035); SQUAMOUS EPITHELIAL CELL UR AU 0 /HPF (0-6); UROBILINOGEN, URINE AUTO 0.2 mg/dL (0.0-2.0); WBC, URINE AUTO 0 /HPF (0-3)
[2023-03-08 12:20] LABS: URIC ACID 4.1 MG/DL (3.7-9.2)
[2023-03-08 13:26] LABS: HEMOGLOBIN A1c 10.3 % (4.0-6.0)
== END ==
LOC: M SFHCCLAY 07:38
PROVIDERS: ATTEND Family Medicine
DX: Z12.5 Encounter for screening for malignant neoplasm of prostate (principal); M25.50 Pain in unspecified joint; N40.1 Benign prostatic hyperplasia with lower urinary tract symptoms; E11.9 Type 2 diabetes mellitus without complications
CPT/HCPCS: 80048; 81001; 83036; 84550; 86618; 87468; 87469; 87478; G0103

== ENCOUNTER → 2023-06-16 | Outpatient (REF) | payer MEDICARE, OTHER ==
[2023-06-16 12:11] LABS: BLOOD UREA NITROGEN 22 MG/DL (9-23); CALCIUM LEVEL 8.9 MG/DL (8.3-10.6); CARBON DIOXIDE LEVEL 24 MMOL/L (20-31); CHLORIDE LEVEL 105 MMOL/L (98-107); CREATININE FOR GFR 0.96 MG/DL (0.70-1.30); GLOMERULAR FILTRATION RATE > 60.0 (>49); GLUCOSE, FASTING 268 MG/DL (74-106); SODIUM LEVEL 138 MMOL/L (136-145)
[2023-06-16 12:19] LABS: HEMOGLOBIN A1c 10.5 % (4.0-6.0)
== END ==
LOC: M SFHCCLAY 07:21
PROVIDERS: ATTEND Family Medicine
DX: E11.9 Type 2 diabetes mellitus without complications (principal)

== ENCOUNTER → 2023-09-18 | Outpatient (REF) | payer MEDICARE, OTHER ==
[~2023-09-18] MED LIST changes: +GLIP5TAB17 PO; -GLIP5TAB8 PO; +SEMA1PEN2 SQ; +TAMS1CAP17 PO
[2023-09-18 12:07] LABS: BLOOD UREA NITROGEN 17 MG/DL (9-23); CALCIUM LEVEL 9.1 MG/DL (8.3-10.6); CARBON DIOXIDE LEVEL 26 MMOL/L (20-31); CHLORIDE LEVEL 106 MMOL/L (98-107); CREATININE FOR GFR 0.97 MG/DL (0.70-1.30); GLOMERULAR FILTRATION RATE > 60.0 (>49); GLUCOSE, FASTING 167 MG/DL (74-106); POTASSIUM SERUM 4.2 MMOL/L (3.5-5.1); SODIUM LEVEL 139 MMOL/L (136-145)
[2023-09-18 12:15] LABS: HEMOGLOBIN A1c 7.8 % (4.0-6.0)
== END ==
LOC: M SFHCCLAY 07:25
PROVIDERS: ATTEND Family Medicine
DX: E11.9 Type 2 diabetes mellitus without complications (principal)

== ENCOUNTER 2023-09-27 10:20 | Emergency (ER) | payer MEDICARE, OTHER ==
[~2023-09-27] VITALS: Ht 165.1 cm; Wt 81.8 kg
[2023-09-27 10:55] VITALS: TEMP 97.4
[2023-09-27] MEDS ORDERED: ONDANSETRON 4MG 2ML VIAL IV ONE (11:05)
[2023-09-27 11:17] LABS: INR 0.96; PROTHROMBIN TIME 12.5 SECONDS (12.5-14.5)
[2023-09-27 11:20] LABS: BASO # 0.1 10^3/uL (0.0-0.2); BASO % 0.8 % (0.0-1.0); EOS # 0.1 10^3/uL (0.0-0.5); EOS % 2.1 % (0.0-3.0); HEMATOCRIT 42.8 % (42.0-52.0); HEMOGLOBIN 14.7 g/dl (13.5-17.5); LYMPH # 2.5 10^3/uL (1.5-5.0); LYMPH % 41.7 % (24.0-44.0); MEAN CORPUSCULAR HEMOGLOBIN 30.8 pg (27.0-33.0); MEAN CORPUSCULAR HGB CONC 34.3 g/dl (32.0-36.5); MEAN CORPUSCULAR VOLUME 89.5 fl (80.0-96.0); MONO # 0.4 10^3/uL (0.0-0.8); MONO % 7.3 % (2.0-8.0); NEUTROPHILS # 2.9 10^3/uL (1.5-8.5); NEUTROPHILS % 47.9 % (36.0-66.0); PLATELET COUNT, AUTOMATED 209 10^3/uL (150-450); RED BLOOD COUNT 4.78 10^6/uL (4.30-6.10); WHITE BLOOD COUNT 6.1 10^3/uL (4.0-10.0)
[2023-09-27 11:22] LABS: LIPASE 65 U/L (12-53)
[2023-09-27 11:25] LABS: ALBUMIN 4.5 G/DL (3.2-5.2); ALKALINE PHOSPHATASE 54 U/L (46-116); ALT/SGPT 32 U/L (7.0-40); AST/SGOT 14 U/L (<34); BILIRUBIN,DIRECT 0.2 MG/DL (<0.4); BILIRUBIN,TOTAL 0.8 MG/DL (0.3-1.2); BLOOD UREA NITROGEN 16 MG/DL (9-23); CALCIUM LEVEL 9.4 MG/DL (8.3-10.6); CARBON DIOXIDE LEVEL 25 MMOL/L (20-31); CHLORIDE LEVEL 108 MMOL/L (98-107); CK-MB VALUE MASS < 1.0 NG/ML (<3.6); GLOMERULAR FILTRATION RATE > 60.0 (>49); GLUCOSE, FASTING 118 MG/DL (74-106); POTASSIUM SERUM 4.2 MMOL/L (3.5-5.1); SODIUM LEVEL 140 MMOL/L (136-145); TOTAL PROTEIN 7.8 G/DL (5.7-8.2)
[2023-09-27 11:28] LABS: THYROID STIMULATING HORMONE 2.239 uIU/ML (0.55-4.78)
[2023-09-27 11:29] LABS: CPK CREATINE PHOSPHOKINASE 113 U/L (46-171); FREE T4 1.06 NG/DL (0.89-1.76); MB/CK RELATIVE INDEX 0.88 (< OR =4)
[2023-09-27 12:36] LABS: CK-MB VALUE MASS < 1.0 NG/ML (<3.6)
[2023-09-27 12:37] LABS: CPK CREATINE PHOSPHOKINASE 91 U/L (46-171); MB/CK RELATIVE INDEX 1.09 (< OR =4)
[2023-09-27] MEDS ORDERED: MED REC IN PROGRESS XX SCH (13:45)
[2023-09-27] MEDS ORDERED: VITMTA PO (14:19)
[2023-09-27] MEDS ORDERED: HOME MED LIST COMPLETE! XX SCH (14:25)
[2023-09-27] MEDS ORDERED: LORazepam 2 MG/ML 1ML VIAL IV STA (14:40)
[2023-09-27 14:44] LABS: CK-MB VALUE MASS < 1.0 NG/ML (<3.6)
[2023-09-27 14:45] LABS: CPK CREATINE PHOSPHOKINASE 88 U/L (46-171); MB/CK RELATIVE INDEX 1.13 (< OR =4)
[2023-09-27 17:15] VITALS: BP 128/88; O2SAT 98
== END 2023-09-27 17:47 | disposition home or self-care (01) ==
LOC: M ED 10:20
DX: R42 Dizziness and giddiness (principal); I44.0 Atrioventricular block, first degree; E78.5 Hyperlipidemia, unspecified; Z86.79 Personal history of other diseases of the circulatory system; Z88.5 Allergy status to narcotic agent; Z88.8 Allergy status to other drugs, medicaments and biological substances; Z79.82 Long term (current) use of aspirin; Z79.810 Long term (current) use of selective estrogen receptor modulators (SERMs); Z79.83 Long term (current) use of bisphosphonates; Z79.899 Other long term (current) drug therapy
CPT/HCPCS: 70450; 70544; 70551; 71045; 80048; 80076; 82550; 82553; 83690; 83880; 84439; 84443; 84484; 85025; 85610; 86618; 87486; 87581; 87633; 87798; 93005; 93041; 94760; 96374; 96375; 99285; J2060; J2405

== ENCOUNTER → 2023-12-19 | Outpatient (REF) | payer MEDICARE, OTHER ==
[2023-12-19 13:03] LABS: BLOOD UREA NITROGEN 16 MG/DL (9-23); CALCIUM LEVEL 8.9 MG/DL (8.3-10.6); CARBON DIOXIDE LEVEL 26 MMOL/L (20-31); CHLORIDE LEVEL 108 MMOL/L (98-107); GLOMERULAR FILTRATION RATE > 60.0 (>49); GLUCOSE, FASTING 175 MG/DL (74-106); POTASSIUM SERUM 4.6 MMOL/L (3.5-5.1); SODIUM LEVEL 138 MMOL/L (136-145)
[2023-12-19 13:10] LABS: HEMOGLOBIN A1c 7.3 % (4.0-6.0)
== END ==
LOC: M SFHCCLAY 08:14
PROVIDERS: ATTEND Family Medicine
DX: E11.9 Type 2 diabetes mellitus without complications (principal)

== ENCOUNTER 2024-01-31 06:38 | Day surgery (SDC) | payer MEDICARE, OTHER ==
[~2024-01-31] VITALS: Ht 165.1 cm; Wt 80.7 kg
[~2024-01-31 06:38] MED LIST changes: +MECL-86 PO; +SEMA0.257 SC; +THERTAB52 PO
[2024-01-31] MEDS ORDERED: LIDOCAINE 2% 100MG/5ML SDV (FOR ANES.) As Ordered ONE (07:29)
[2024-01-31] MEDS ORDERED: propofoL 500 MG/50 ML VIAL As Ordered ONE (07:29)
[2024-01-31 07:44] VITALS: TEMP 97
[2024-01-31 08:09] VITALS: BP 123/69; O2SAT 96
== END 2024-01-31 08:22 | disposition home or self-care (01) ==
LOC: M OPP 06:38
PROVIDERS: ATTEND Internal Medicine Gastroenterology
DX: Z86.010 Personal history of colon polyps (principal); K64.0 First degree hemorrhoids; K57.30 Diverticulosis of large intestine without perforation or abscess without bleeding; I25.9 Chronic ischemic heart disease, unspecified; E11.9 Type 2 diabetes mellitus without complications; G47.30 Sleep apnea, unspecified; Z86.74 Personal history of sudden cardiac arrest; Z95.5 Presence of coronary angioplasty implant and graft; Z79.02 Long term (current) use of antithrombotics/antiplatelets; Z79.84 Long term (current) use of oral hypoglycemic drugs; Z79.82 Long term (current) use of aspirin; Z79.899 Other long term (current) drug therapy; Z88.5 Allergy status to narcotic agent

== ENCOUNTER → 2024-02-14 | Outpatient (REF) | payer MEDICARE, OTHER | LOC: M SFHCCLAY 08:47 | PROVIDERS: ATTEND Family Medicine | DX: Z91.014 Allergy to mammalian meats (principal); Z79.899 Other long term (current) drug therapy; Z91.048 Other nonmedicinal substance allergy status ==

== ENCOUNTER → 2024-03-26 | Outpatient (REF) | payer MEDICARE, OTHER ==
[2024-03-26 12:11] LABS: HEMOGLOBIN A1c 8.2 % (4.0-6.0)
[2024-03-26 12:32] LABS: BLOOD UREA NITROGEN 14 MG/DL (9-23); CALCIUM LEVEL 8.9 MG/DL (8.3-10.6); CARBON DIOXIDE LEVEL 28 MMOL/L (20-31); CHLORIDE LEVEL 105 MMOL/L (98-107); CHOLESTEROL LEVEL 142 MG/DL (<200); CHOLESTEROL RISK RATIO 2.41 (<5); CREATININE FOR GFR 0.94 MG/DL (0.70-1.30); GLOMERULAR FILTRATION RATE > 60.0 (>49); GLUCOSE, FASTING 162 MG/DL (74-106); HDL CHOLESTEROL 58.7 MG/DL (>40); LDL CHOLESTEROL 66.3 MG/DL (<100); NON-HDL-C 83.3 MG/DL; POTASSIUM SERUM 4.2 MMOL/L (3.5-5.1); PSA SCREENING 0.46 NG/ML (< 4.00); SODIUM LEVEL 139 MMOL/L (136-145); TRIGLYCERIDES LEVEL 85 MG/DL (<150)
== END ==
LOC: M SFHCCLAY 08:03
PROVIDERS: ATTEND Family Medicine
DX: E11.9 Type 2 diabetes mellitus without complications (principal); I25.10 Atherosclerotic heart disease of native coronary artery without angina pectoris; N40.1 Benign prostatic hyperplasia with lower urinary tract symptoms; I10 Essential (primary) hypertension; E78.5 Hyperlipidemia, unspecified; Z12.5 Encounter for screening for malignant neoplasm of prostate
CPT/HCPCS: 36415; 80048; 80053; 80061; 83036; 83721; 83880; 85025; G0103

== ENCOUNTER → 2024-03-26 | Outpatient (REF) | payer MEDICARE, OTHER ==
[2024-03-26 12:01] LABS: BASO # 0.1 10^3/uL (0.0-0.2); BASO % 0.8 % (0.0-1.0); EOS # 0.3 10^3/uL (0.0-0.5); EOS % 4.2 % (0.0-3.0); HEMATOCRIT 40.1 % (42.0-52.0); HEMOGLOBIN 13.7 g/dl (13.5-17.5); LYMPH # 2.1 10^3/uL (1.5-5.0); LYMPH % 32.8 % (24.0-44.0); MEAN CORPUSCULAR HEMOGLOBIN 30.8 pg (27.0-33.0); MEAN CORPUSCULAR HGB CONC 34.2 g/dl (32.0-36.5); MEAN CORPUSCULAR VOLUME 90.1 fl (80.0-96.0); MONO # 0.4 10^3/uL (0.0-0.8); MONO % 6.4 % (2.0-8.0); NEUTROPHILS # 3.6 10^3/uL (1.5-8.5); NEUTROPHILS % 55.5 % (36.0-66.0); PLATELET COUNT, AUTOMATED 224 10^3/uL (150-450); RED BLOOD COUNT 4.45 10^6/uL (4.30-6.10); WHITE BLOOD COUNT 6.4 10^3/uL (4.0-10.0)
[2024-03-26 12:11] LABS: HEMOGLOBIN A1c 8.2 % (4.0-6.0)
[2024-03-26 12:31] LABS: ALBUMIN 3.9 G/DL (3.2-5.2); ALKALINE PHOSPHATASE 62 U/L (46-116); ALT/SGPT 23 U/L (7.0-40); AST/SGOT 11 U/L (<34); BILIRUBIN,TOTAL 0.5 MG/DL (0.3-1.2); BLOOD UREA NITROGEN 13 MG/DL (9-23); CALCIUM LEVEL 9.2 MG/DL (8.3-10.6); CARBON DIOXIDE LEVEL 28 MMOL/L (20-31); CHLORIDE LEVEL 106 MMOL/L (98-107); CHOLESTEROL LEVEL 143 MG/DL (<200); CHOLESTEROL RISK RATIO 2.54 (<5); CREATININE FOR GFR 0.97 MG/DL (0.70-1.30); GLOMERULAR FILTRATION RATE > 60.0 (>49); GLUCOSE, FASTING 163 MG/DL (74-106); HDL CHOLESTEROL 56.2 MG/DL (>40); LDL CHOLESTEROL 71.6 MG/DL (<100); NON-HDL-C 86.8 MG/DL; POTASSIUM SERUM 4.3 MMOL/L (3.5-5.1); SODIUM LEVEL 140 MMOL/L (136-145); TOTAL PROTEIN 6.9 G/DL (5.7-8.2); TRIGLYCERIDES LEVEL 76 MG/DL (<150)
[2024-03-27 07:12] LABS: LDL DIRECT 72 mg/dL (<100)
== END ==
LOC: M LABDRAWC 11:00
PROVIDERS: ATTEND Internal Medicine Cardiovascular Disease
DX: I25.10 Atherosclerotic heart disease of native coronary artery without angina pectoris (principal); I10 Essential (primary) hypertension; E78.5 Hyperlipidemia, unspecified

== ENCOUNTER → 2024-04-26 | Outpatient (REF) | payer MEDICARE, OTHER ==
[2024-04-26 11:38] LABS: ALBUMIN 3.8 G/DL (3.2-5.2); ALKALINE PHOSPHATASE 55 U/L (46-116); ALT/SGPT 27 U/L (7.0-40); AST/SGOT 14 U/L (<34); BILIRUBIN,TOTAL 0.6 MG/DL (0.3-1.2); BLOOD UREA NITROGEN 15 MG/DL (9-23); CALCIUM LEVEL 8.7 MG/DL (8.3-10.6); CARBON DIOXIDE LEVEL 28 MMOL/L (20-31); CHLORIDE LEVEL 107 MMOL/L (98-107); CHOLESTEROL LEVEL 125 MG/DL (<200); CHOLESTEROL RISK RATIO 2.23 (<5); CREATININE FOR GFR 0.94 MG/DL (0.70-1.30); GLOMERULAR FILTRATION RATE > 60.0 (>49); GLUCOSE, FASTING 156 MG/DL (74-106); HDL CHOLESTEROL 55.9 MG/DL (>40); LDL CHOLESTEROL 52.9 MG/DL (<100); MAGNESIUM LEVEL 1.9 MG/DL (1.8-2.4); NON-HDL-C 69.1 MG/DL; POTASSIUM SERUM 4.3 MMOL/L (3.5-5.1); SODIUM LEVEL 137 MMOL/L (136-145); TOTAL PROTEIN 7.2 G/DL (5.7-8.2); TRIGLYCERIDES LEVEL 81 MG/DL (<150)
== END ==
LOC: M LABDRAWC 10:44
PROVIDERS: ATTEND Internal Medicine Cardiovascular Disease
DX: E78.2 Mixed hyperlipidemia (principal)

== ENCOUNTER → 2024-07-02 | Outpatient (REF) | payer MEDICARE, OTHER ==
[~2024-07-02] MED LIST changes: -ROSU20TA61 PO; +ROSU20TA86 PO; -SIME180C25 PO; +SIME1CAP4 PO
[2024-07-02 12:17] LABS: HEMOGLOBIN A1c 8.5 % (4.0-6.0)
== END ==
LOC: M SFHCCLAY 08:02
PROVIDERS: ATTEND Physician Assistant
DX: E11.9 Type 2 diabetes mellitus without complications (principal)

== ENCOUNTER → 2024-10-01 | Outpatient (REF) | payer MEDICARE, OTHER ==
[~2024-10-01] MED LIST changes: +ATOR-398 PO; -LIPI80TA PO
[2024-10-01 12:16] LABS: ALBUMIN 4.1 G/DL (3.2-5.2); ALKALINE PHOSPHATASE 61 U/L (40-129); ALT/SGPT 26 U/L (7.0-40); AST/SGOT 16 U/L (<34); BILIRUBIN,TOTAL 0.8 MG/DL (0.3-1.2); BLOOD UREA NITROGEN 23 MG/DL (9-23); CALCIUM LEVEL 9.4 MG/DL (8.3-10.6); CARBON DIOXIDE LEVEL 24 MMOL/L (20-31); CHLORIDE LEVEL 108 MMOL/L (98-107); CHOLESTEROL LEVEL 171 MG/DL (<200); CHOLESTEROL RISK RATIO 2.23 (<5); CREATININE FOR GFR 0.96 MG/DL (0.70-1.30); GLOMERULAR FILTRATION RATE > 60.0 (>49); GLUCOSE, FASTING 147 MG/DL (74-106); HDL CHOLESTEROL 76.5 MG/DL (>40); LDL CHOLESTEROL 73.1 MG/DL (<100); NON-HDL-C 94.5 MG/DL; POTASSIUM SERUM 4.2 MMOL/L (3.5-5.1); SODIUM LEVEL 143 MMOL/L (136-145); TOTAL PROTEIN 7.9 G/DL (5.7-8.2); TRIGLYCERIDES LEVEL 107 MG/DL (<150)
[2024-10-01 12:43] LABS: HEMOGLOBIN A1c 7.3 % (4.0-6.0)
[2024-10-01 17:43] LABS: CREATININE, URINE 87.9 MG/DL
== END ==
LOC: M SFHCCLAY 08:05
PROVIDERS: ATTEND Physician Assistant
DX: E11.9 Type 2 diabetes mellitus without complications (principal); I25.10 Atherosclerotic heart disease of native coronary artery without angina pectoris

== ENCOUNTER → 2025-01-06 | Outpatient (REF) | payer MEDICARE, OTHER ==
[2025-01-06 13:18] LABS: HEMOGLOBIN A1c 7.4 % (4.0-6.0)
== END ==
LOC: M SFHCCLAY 07:59
PROVIDERS: ATTEND Physician Assistant
DX: E11.9 Type 2 diabetes mellitus without complications (principal)

== ENCOUNTER → 2025-04-14 | Outpatient (REF) | payer MEDICARE, OTHER | LOC: M SFHCCLAY 08:37 | PROVIDERS: ATTEND Physician Assistant | DX: Z53.9 Procedure and treatment not carried out, unspecified reason (principal) ==

== ENCOUNTER → 2025-04-15 | Outpatient (REF) | payer MEDICARE, OTHER ==
[2025-04-15 13:29] LABS: ESTIMATED AVERAGE GLUCOSE 160.0 MG/DL (60-110)
[2025-04-15 13:43] LABS: PSA SCREENING 0.64 NG/ML (< 4.00)
[2025-04-15 13:46] LABS: ALT/SGPT 21.0 U/L (7.0-40); AST/SGOT 19.0 U/L (<34); CALCIUM LEVEL 9.0 MG/DL (8.3-10.6); CARBON DIOXIDE LEVEL 24.0 MMOL/L (20-31); CHLORIDE LEVEL 105.0 MMOL/L (98-107); CHOLESTEROL LEVEL 147.0 MG/DL (<200); CHOLESTEROL RISK RATIO 1.98 (<5); CREATININE FOR GFR 1.01 MG/DL (0.70-1.30); GLOMERULAR FILTRATION RATE 84.1 (>49); LDL CHOLESTEROL 58.0 MG/DL (<100); NON-HDL-C 72.8 MG/DL; POTASSIUM SERUM 4.2 MMOL/L (3.5-5.1); SODIUM LEVEL 143.0 MMOL/L (136-145); TRIGLYCERIDES LEVEL 74.0 MG/DL (<150)
== END ==
LOC: M SFHCCLAY 07:59
PROVIDERS: ATTEND Physician Assistant
DX: K21.9 Gastro-esophageal reflux disease without esophagitis (principal); E78.2 Mixed hyperlipidemia; E11.9 Type 2 diabetes mellitus without complications; Z12.5 Encounter for screening for malignant neoplasm of prostate
CPT/HCPCS: 80053; 80061; 83036; G0103

== ENCOUNTER → 2025-08-20 | Outpatient (REF) | payer MEDICARE, OTHER ==
[2025-08-20 12:57] LABS: ALT/SGPT 26.0 U/L (7.0-40); AST/SGOT 16.0 U/L (<34); CALCIUM LEVEL 9.1 MG/DL (8.3-10.6); CARBON DIOXIDE LEVEL 26.0 MMOL/L (20-31); CHLORIDE LEVEL 105.0 MMOL/L (98-107); CREATININE FOR GFR 0.98 MG/DL (0.70-1.30); GLOMERULAR FILTRATION RATE 87.2 (>49); POTASSIUM SERUM 4.3 MMOL/L (3.5-5.1); SODIUM LEVEL 142.0 MMOL/L (136-145)
[2025-08-20 14:07] LABS: ESTIMATED AVERAGE GLUCOSE 189.0 MG/DL (60-110)
== END ==
LOC: M SFHCCLAY 08:07
PROVIDERS: ATTEND Physician Assistant
DX: Z00.00 Encounter for general adult medical examination without abnormal findings (principal); E11.9 Type 2 diabetes mellitus without complications; I25.10 Atherosclerotic heart disease of native coronary artery without angina pectoris; N40.1 Benign prostatic hyperplasia with lower urinary tract symptoms; Z95.5 Presence of coronary angioplasty implant and graft; K21.9 Gastro-esophageal reflux disease without esophagitis; Z87.19 Personal history of other diseases of the digestive system; H81.10 Benign paroxysmal vertigo, unspecified ear; Z86.73 Personal history of transient ischemic attack (TIA), and cerebral infarction without residual deficits; I77.819 Aortic ectasia, unspecified site; I50.42 Chronic combined systolic (congestive) and diastolic (congestive) heart failure; G47.33 Obstructive sleep apnea (adult) (pediatric); Z12.5 Encounter for screening for malignant neoplasm of prostate